=== PATIENT | male | born 1950 | race Caucasian/White ===

== ENCOUNTER 2018-07-09 14:08 | Outpatient (CLI) | payer MEDICARE, OTHER, SELFPAY ==
[2018-07-09 14:37] LABS: HCT 46.8 % (40.0-50.0); HGB 15.1 g/dL (13.5-17.5); Mean Corp. HGB Concentration 32.3 g/dL (32.0-36.0); Mean Corpuscular Hemoglobin 27.1 pg (27.0-33.0); Mean Corpuscular Volume 83.9 fL (80-95); Mean Platelet Volume 10.5 fL (8.0-11.0); Platelet Count 174 x1000/uL (130-400); RBC 5.58 m/cumm (4.50-6.00); RBC Distribution Width 14.6 % (11.8-14.1); White Blood Cell Count 7.38 k/cumm (4.4-10.8)
[2018-07-09 15:35] LABS: ALT 26 U/L (12-78); AST 15 U/L (15-37); Albumin 3.7 g/dL (3.4-5.0); Alkaline Phosphatase 57 U/L (46-116); Anion Gap 6.8 mmol/L (3-11); BUN 16 mg/dL (7-18); Bilirubin, Total 0.5 mg/dL (0.2-1.0); CO2 30.2 mmol/L (21.0-32.0); CREATININE 1.16 mg/dL (0.70-1.30); Calcium 9.1 mg/dL (8.5-10.1); Chloride 107 mmol/L (98-107); Glucose 109 mg/dL (70-100); Potassium 4.5 mmol/L (3.5-5.1); Sodium 144 mmol/L (136-145); Total Protein 6.7 g/dL (6.4-8.2)
== END 2018-07-09 14:28 ==
PROVIDERS: PCP Family Medicine; Visit Provider Family Medicine
DX: J44.1 Chronic obstructive pulmonary disease with (acute) exacerbation (principal)
CPT/HCPCS: 36415; 80053; 85027

== ENCOUNTER 2018-07-21 00:07 | Outpatient (CLI) | payer MEDICARE, OTHER, SELFPAY ==
--- NOTE | 2018-07-21 12:42 | DI.CT_ITS ---
SYMPTOMS/DIAGNOSIS: ABNL CHEST CT, R93.8, F/U MULTIPLE LUNG NODULES CT CHEST: Comparison is made with [id number]. A noncontrast exam was performed. The heart size is normal. The main pulmonary artery and left and right main pulmonary arteries are prominent which could indicate pulmonary hypertension. There is underlying central lobular emphysema. There is a linear area of scarring in the right upper lobe. There are dependent changes at the lung bases. There has been no change in the 5 mm nodule seen in the right upper and right lower lobes as well as the left lower lobe nodule. No new nodules are identified. There are no pleural or pericardial effusions or evidence of adenopathy. IMPRESSION: Stable small bilateral pulmonary nodules. No evidence of new nodules or other acute abnormality. If the patient is at high risk for lung cancer, a low dose screening CT is recommended in 12 months.
== END 2018-07-21 00:27 ==
PROVIDERS: PCP Family Medicine; Visit Provider Internal Medicine
DX: R93.89 Abnormal findings on diagnostic imaging of other specified body structures (principal); R91.8 Other nonspecific abnormal finding of lung field
CPT/HCPCS: 71250

== ENCOUNTER 2019-04-09 00:57 | Outpatient (CLI) | payer MEDICARE, OTHER, SELFPAY ==
--- NOTE | 2019-04-09 08:45 | DI.CT_ITS ---
SYMPTOM/DIAGNOSIS: COPD, J44.[address]: CT scan of the chest was performed without intravenous contrast material. Comparison is made with 07/21/18. There is mild atherosclerosis of the thoracic aorta but no aneurysmal dilatation is seen. Heart size is within normal limits. No significant pericardial effusion is present. Mild coronary artery calcifications are present. No significant thoracic adenopathy is identified. No pleural effusion or pneumothorax is present. Centrilobular emphysematous changes are present in the lungs. No focal consolidating infiltrates are present. Scarring is again seen in the right upper lobe. There is a stable 3 mm. noncalcified pulmonary nodule in the right upper lobe laterally (series 6, image 175). There is a stable 4 mm. non calcified pulmonary nodule in the right upper lobe (series 6, image 323). There is a stable 2 mm. non calcified pulmonary nodule in the right upper lobe (series 6, image 331). There is a 0.4 cm. pulmonary nodule in the right upper lobe anteriorly (series 6, image 359). This is stable. The 0.5 cm. pulmonary nodule in the right lower lobe appears stable (series 6, image 416). The lobulated nodule in the left lower lobe appears stable (series 6, image 510). No new pulmonary nodules are present. The tracheobronchial tree is unremarkable. No acute abnormality is seen in the upper abdomen. Degenerative changes are seen in the spine. IMPRESSION: Stable pulmonary nodules. Centrilobular emphysema. No acute abnormality.
== END 2019-04-09 01:17 ==
PROVIDERS: PCP Family Medicine; Visit Provider Internal Medicine
DX: J44.9 Chronic obstructive pulmonary disease, unspecified (principal); R91.8 Other nonspecific abnormal finding of lung field; J43.2 Centrilobular emphysema
CPT/HCPCS: 71250

== ENCOUNTER 2019-05-30 07:40 | Emergency (ER) | payer MEDICARE, OTHER, SELFPAY ==
[2019-05-30 07:47] VITALS: BP 117/64; PULSE 54; RESP 16; TEMP 36.3; O2SAT 97
--- NOTE | 2019-05-30 08:15 | ED.GENADUL_ITS ---
Discharge Plan Disposition Patient Disposition: HOME Discharge Details Chief Complaint: Vascular Clinical Impression: Left leg swelling Primary Care Provider: Dania Almaraz ED Provider: Danile Castellanos Home Meds and New Rx's Prescriptions: New Eliquis 5 mg tablet 10 mg PO BID Qty: 13 RF: 0 Continued albuterol sulfate [ProAir HFA] 90 mcg/actuation HFA aerosol inhaler 1 - 2 puff Inhalation Q4H PRN Qty: 3 RF: 12 Symbicort 160-4.5 mcg/actuation HFA aerosol inhaler 2 puff Inhalation BID Qty: 3 RF: 12 magnesium chloride [Mag 64] 64 mg tablet,delayed release (DR/EC) 64 mg PO BID Qty: 180 RF: 12 tamsulosin [Flomax] 0.4 mg capsule 0.4 mg PO HS Qty: 90 RF: 12 Spiriva with HandiHaler 18 mcg capsule, w/inhalation device 1 cap Inhalation DAILY Qty: 3 RF: 12 ascorbic acid (vitamin C) 500 mg capsule PO DAILY RF: 0 potassium chloride [Klor-Con M20] 20 mEq tablet,ER particles/crystals 20 meq PO BID Qty: 180 RF: 12 Discharge Instructions Additional Instructions: Please call and schedule an ultrasound of your right lower extremity to be performed on Saturday. Please contact your primary care physician to arrange follow-up. Return to the ER for any worsening or new concerning symptoms. Referrals: Dania Almaraz MD, [place] [Primary Care Provider] - Discharge Data Discharge Date/Time-TO BE ENTERED AT DEPARTURE: 05/30/19 09:25 Medical Decision Making 8:10 --68-year-old male presents with left lower extremity swelling, mild discomfort and itching over the past 5 days. No overlying warmth or erythema. Focal subcutaneous nodular swelling distal anterior lateral lower extremity - suspect superficial vein thrombus. Consider DVT. Plan to obtain ultrasound LLE. 9:09 --no radiation therapy technologist available to perform study today. Earliest potential scheduled appointment is on Saturday. I discussed with patient transfer vs treat empirically and await outpatient follow-up. Patient prefers to stay local and refuses transfer. I will order this outpatient study to expedite outpatient work-up. Plan to initiate treatment with Eliquis. I have encouraged the patient to follow-up with his primary care physician. Patient understands importance of timely follow-up. Usual customary discharge instructions were provided. HPI General Mode of arrival: ambulatory . Date/Time Provider Initiated Documentation: 05/30/19 07:51 . Limitations to Documentation: no limitations . Information obtained by: patient . HPI Narrative: 68-year-old male with prior history of DVT attributed to immobility and prolonged hospitalization years ago, no longer on anticoagulation, here with chief complaint of left lower leg swelling and associated discomfort. Patient notes swelling has been persistent for the past 5 days. Swelling is localized to distal left lower leg and seems worse anteriorly just proximal to his ankle. He has mild discomfort and itching in the area. Symptoms are moderate. No modifiers. No associated warmth or redness in the area. No known bug bites. No chest pain or shortness of breath, different than his chronic COPD, and no fevers. Related Data Home Medications Medication Instructions Recorded Confirmed potassium chloride 20 mEq 20 meq PO BID #180 tab 06/18/18 05/30/19 tablet,extended release(part/cryst) albuterol sulfate 90 mcg/actuation 1 - 2 puff INHALATION Q4H PRN #3 06/19/18 05/30/19 aerosol inhaler inhaler budesonide-formoterol HFA 160 2 puff INHALATION BID #3 canister 06/19/18 05/30/19 mcg-4.5 mcg/actuation aerosol inhaler magnesium chloride 64 mg 64 mg PO BID #180 tab-cap 06/19/18 05/30/19 (magnesium chloride) tablet,delayed release tamsulosin 0.4 mg capsule 0.4 mg PO HS #90 tab-cap 06/19/18 05/30/19 tiotropium bromide 18 mcg capsule 1 cap INHALATION DAILY #3 inh 06/19/18 05/30/19 with inhalation device ascorbic acid (vitamin C) 500 mg mg PO DAILY cap 03/23/19 03/23/19 capsule apixaban [Eliquis] 10 mg PO BID #13 tab 05/30/19 Previous Rx's Medication Instructions Recorded potassium chloride 20 mEq 20 meq PO BID #180 tab 06/18/18 tablet,extended release(part/cryst) albuterol sulfate 90 mcg/actuation 1 - 2 puff INHALATION Q4H PRN #3 06/19/18 aerosol inhaler inhaler budesonide-formoterol HFA 160 2 puff INHALATION BID #3 canister 06/19/18 mcg-4.5 mcg/actuation aerosol inhaler magnesium chloride 64 mg 64 mg PO BID #180 tab-cap 06/19/18 (magnesium chloride) tablet,delayed release tamsulosin 0.4 mg capsule 0.4 mg PO HS #90 tab-cap 06/19/18 tiotropium bromide 18 mcg capsule 1 cap INHALATION DAILY #3 inh 06/19/18 with inhalation device apixaban [Eliquis] 10 mg PO BID #13 tab 05/30/19 Allergies Allergy/AdvReac Type Severity Reaction Status Date / Time No Known Allergies Allergy Unverified 03/23/19 11:40 General Stated Complaint: Vascular JACE: 4 Review of Systems Review of Systems All systems reviewed & are unremarkable except as noted in HPI and below Cardiovascular Denies chest pain and Reports dyspnea (chronic unchanged) Respiratory Denies cough and Reports dyspnea (chronic unchanged) Integumentary/Breasts Denies rash [facility] Medical History AK (actinic keratosis) Anorectal fistula Chronic obstructive pulmonary disease with frequent exacerbations (Chronic) PFT-2003; Severe obs.disease; -A1,AD; FEV1=24% 09/05 neg. 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 TOLEDO-08/19/14; ear inflammation - could effect trachea in the future Seborrheic keratoses (Chronic 07/25/17) skin of submandibular region, right Smoker (Resolved) 12/26/12 60 pack yrs.; quit Surgical History Colonoscopy - MAC (~1998) Excision, Skin Mass (07/25/17) skin of submandibular region, right, seborrheic keratosis H/O knee surgery (Resolved) age 6 H/O surgical procedure (Resolved) fistula plug placed 05/2012 hernia repair knee repair age 6 PROCEDURES FISTULAS PLUG PLACED 06/23/12 (DR. RAMOS BAI) S/P hernia repair (Resolved) Family History Mother Ulcer Alzheimer disease Dementia OA (osteoarthritis) COPD (chronic obstructive pulmonary disease) Father COPD (chronic obstructive pulmonary disease) Pancreatic cancer Asthma Sister Essential hypertension Asthma Brother No problems noted. Paternal Grandfather Cancer Maternal Grandmother Cancer Paternal Grandmother Cancer Son Asthma Son Essential hypertension Son No problems noted. Social History Smoking/Tobacco Use Status: Former Tobacco Use Quit Date: 09/30/82 Alcohol Intake: current Alcohol Intake frequency: 0-2 drinks per day Alcohol type: beer and hard liquor Drug use: Never Substance use type: does not use Household members: spouse Pets and animals: No What type of physical activity do you participate in: walking Duration: 45-60 minutes/day Frequency: 3-4 times per week Little/Episcopalian: No preference Special little needs: No Do you feel safe in your relationship?: Yes Exam Const General: cooperative and no acute distress HENMT Mouth: moist mucous membranes Eyes Conjunctivae: normal conjunctivae Sclera: normal sclerae Resp Auscultation: clear to auscultation bilaterally, no rales, no rhonchi and no wheezes Cardio Rate: regular rate and not tachycardic Rhythm: regular rhythm Pulses: posterior tibial pulses present on the left 1+ Skin General skin exam: no rashes or lesions noted Neuro General: alert, awake and tone normal Extrem General: full ROM, no calf tenderness and edema Laterality: left (trace distal LE, anteriorly) Course Vital Signs Temperature 36.3 C L 05/30/19 07:47 Pulse 54 L 05/30/19 07:47 Respiratory Rate 16 05/30/19 07:47 Blood Pressure 117/64 05/30/19 07:47 Pulse Oximetry 97 05/30/19 07:47 Temperature 36.3 C L 05/30/19 07:47 Temperature Source Temporal Artery Scan 05/30/19 07:47 Pulse 54 L 05/30/19 07:47 Respiratory Rate 16 05/30/19 07:47 Blood Pressure 117/64 05/30/19 07:47 Blood Pressure Position Sitting 05/30/19 07:47 Pulse Oximetry 97 05/30/19 07:47 Oxygen Delivery Method Room Air 05/30/19 07:47 Oxygen Flow Rate 0 05/30/19 07:47
[2019-05-30] MEDS: Apixaban 5 MG TAB 10 MG PO (09:20)
== END 2019-05-30 09:25 | disposition home or self-care (01) ==
PROVIDERS: Emergency Provider Student in an Organized Health Care Education/Training Program; PCP Family Medicine
DX: R60.0 Localized edema (principal); L29.9 Pruritus, unspecified; Z86.718 Personal history of other venous thrombosis and embolism; J44.9 Chronic obstructive pulmonary disease, unspecified; Z87.891 Personal history of nicotine dependence
CPT/HCPCS: 99283; 99284

== ENCOUNTER 2019-06-02 00:31 | Outpatient (CLI) | payer MEDICARE, OTHER, SELFPAY ==
--- NOTE | 2019-06-02 09:27 | DI.US_ITS ---
SYMPTOM/DIAGNOSIS: LT LOWER EXTREMITY SWELLING. PAIN. H/O REMOTE DVT R22.42 LEFT LOWER EXTREMITY ULTRASOUND: The patient has a history of a previous DVT. There is thickening along the lin of the mid portion of the left femoral vein which could represent old nonocclusive thrombus. No acute thrombus is seen in the femoral or popliteal veins or visualized calf veins. No superficial thrombophlebitis or Valerio's cyst is seen. IMPRESSION: Wall thickening of the mid femoral vein likely representing old nonocclusive thrombus. No acute DVT is seen.
== END 2019-06-02 00:51 ==
PROVIDERS: PCP Family Medicine; Visit Provider Student in an Organized Health Care Education/Training Program
DX: M79.662 Pain in left lower leg (principal); R22.42 Localized swelling, mass and lump, left lower limb; Z86.718 Personal history of other venous thrombosis and embolism
CPT/HCPCS: 93971

== ENCOUNTER 2019-06-02 09:29 | Emergency (ER) | payer MEDICARE, OTHER, SELFPAY ==
--- NOTE | 2019-06-02 09:33 | NUR.NOTE ---
Nursing Note: pt was seen by yohannes on Saturday for probable blood clot lower left extremity. placed on eliquis and returned today fro ultrasound and followup ultrasound performed this morning
[2019-06-02 09:34] VITALS: BP 123/80; PULSE 56; RESP 16; TEMP 36.4; O2SAT 97
--- NOTE | 2019-06-02 09:44 | ED.GENADUL_ITS ---
Discharge Plan Disposition Patient Disposition: HOME Condition: Stable Discharge Details Chief Complaint: Recheck Clinical Impression: Deep vein thrombosis (DVT) of left lower extremity Primary Care Provider: Dania Almaraz ED Provider: Kevin Stern Home Meds and New Rx's Prescriptions: New Eliquis 5 mg tablet 5 mg PO BID Qty: 60 RF: 0 Continued albuterol sulfate [ProAir HFA] 90 mcg/actuation HFA aerosol inhaler 1 - 2 puff Inhalation Q4H PRN Qty: 3 RF: 12 Symbicort 160-4.5 mcg/actuation HFA aerosol inhaler 2 puff Inhalation BID Qty: 3 RF: 12 magnesium chloride [Mag 64] 64 mg tablet,delayed release (DR/EC) 64 mg PO BID Qty: 180 RF: 12 tamsulosin [Flomax] 0.4 mg capsule 0.4 mg PO HS Qty: 90 RF: 12 Spiriva with HandiHaler 18 mcg capsule, w/inhalation device 1 cap Inhalation DAILY Qty: 3 RF: 12 ascorbic acid (vitamin C) 500 mg capsule PO DAILY RF: 0 potassium chloride [Klor-Con M20] 20 mEq tablet,ER particles/crystals 20 meq PO BID Qty: 180 RF: 12 Eliquis 5 mg tablet 10 mg PO BID Qty: 13 RF: 0 Discharge Instructions Instructions: Deep Venous Thrombosis (ED) Additional Instructions: follow up with your primary care provider within a month so they can continue your blood thinner eliquis if you have high fevers, chest pain or difficulty breathing return to the emergency department Medical Decision Making 68 yo male with prior hx of lower extremity dvt 4 yeras ago per pt after hospitalization for pneumonia, who comes in after having an u/s of his left leg. He has had calf pain and seen on Saturday, no u/s tech was available so he came back today and was started on eliquis. He states he is feeling better, has no swelling on exam with intact sensation and pulses with mild left mid calf pain with palpation and no rashes or warmth. Given recurrent dvt will having him continue eliuis. He needs to have one week total of 10mg twice daily and then will change to 5mg twice daily, will have him f/u with pcp and return precautions given Differential Diagnosis dvt, cellulitis Imaging Data Radiologic Study: Attestation: I personally reviewed and interpreted this imaging study as follows: Imaging: Ultrasound Radiologist's impression: dvt HPI General Mode of arrival: ambulatory . Date/Time Provider Initiated Documentation: 06/02/19 09:29 . Information obtained by: patient . History of Present Illness 68 year old M presents to the emergency department with the chief complaint of left calf discomfort, described as mild, and is localized to the left and lower extremity. No relieving factors improve symptom(s), No exacerbating factors reported . Related Data Home Medications Medication Instructions Recorded Confirmed potassium chloride 20 mEq 20 meq PO BID #180 tab 06/18/18 06/02/19 tablet,extended release(part/cryst) albuterol sulfate 90 mcg/actuation 1 - 2 puff INHALATION Q4H PRN #3 06/19/18 06/02/19 aerosol inhaler inhaler budesonide-formoterol HFA 160 2 puff INHALATION BID #3 canister 06/19/18 06/02/19 mcg-4.5 mcg/actuation aerosol inhaler magnesium chloride 64 mg 64 mg PO BID #180 tab-cap 06/19/18 06/02/19 (magnesium chloride) tablet,delayed release tamsulosin 0.4 mg capsule 0.4 mg PO HS #90 tab-cap 06/19/18 06/02/19 tiotropium bromide 18 mcg capsule 1 cap INHALATION DAILY #3 inh 06/19/18 06/02/19 with inhalation device ascorbic acid (vitamin C) 500 mg mg PO DAILY cap 03/23/19 03/23/19 capsule Eliquis 10 mg PO BID #13 tab 05/30/19 06/02/19 apixaban [Eliquis] 5 mg PO BID #60 tab 06/02/19 Previous Rx's Medication Instructions Recorded potassium chloride 20 mEq 20 meq PO BID #180 tab 06/18/18 tablet,extended release(part/cryst) albuterol sulfate 90 mcg/actuation 1 - 2 puff INHALATION Q4H PRN #3 06/19/18 aerosol inhaler inhaler budesonide-formoterol HFA 160 2 puff INHALATION BID #3 canister 06/19/18 mcg-4.5 mcg/actuation aerosol inhaler magnesium chloride 64 mg 64 mg PO BID #180 tab-cap 06/19/18 (magnesium chloride) tablet,delayed release tamsulosin 0.4 mg capsule 0.4 mg PO HS #90 tab-cap 06/19/18 tiotropium bromide 18 mcg capsule 1 cap INHALATION DAILY #3 inh 06/19/18 with inhalation device Eliquis 10 mg PO BID #13 tab 05/30/19 apixaban [Eliquis] 5 mg PO BID #60 tab 06/02/19 Allergies Allergy/AdvReac Type Severity Reaction Status Date / Time No Known Allergies Allergy Unverified 06/02/19 09:37 General Stated Complaint: Recheck JACE: 4 Review of Systems Review of Systems All systems reviewed & are unremarkable except as noted in HPI and below Constitutional Denies chills, Denies fever(s) and Denies weakness Cardiovascular Denies chest pain and Denies dyspnea Respiratory Denies cough and Denies dyspnea Gastrointestinal Denies abdominal pain, Denies nausea and Denies vomiting Musculoskeletal Denies joint swelling Integumentary/Breasts Denies rash Neurologic Denies weakness PFS Social History Smoking/Tobacco Use Status: Former Tobacco Use Quit Date: 09/30/82 Alcohol Intake: current Alcohol Intake frequency: 0-2 drinks per day Alcohol type: beer and hard liquor Drug use: Never Substance use type: does not use Household members: spouse Pets and animals: No What type of physical activity do you participate in: walking Duration: 45-60 minutes/day Frequency: 3-4 times per week Little/Congregation: No preference Special little needs: No Do you feel safe at home: Yes Do you feel safe in your relationship?: Yes Exam Const General: no acute distress Orientation: alert HENMT Head: normal to inspection Ears: external ears normal General nose exam: external nose normal Mouth: moist mucous membranes Eyes General: appearance normal, both eyes and all related structures Neck Neck: normal visual inspection Resp Effort & Inspection: normal respiratory effort and able to speak in complete sentences Cardio Rate: regular rate Skin General skin exam: no rashes or lesions noted Neuro General: alert and oriented x3 Extrem General: full ROM and normal capillary refill Psych Mental Status: mental status grossly normal Course Vital Signs Temperature 36.4 C 06/02/19 09:34 Pulse 56 L 06/02/19 09:34 Respiratory Rate 16 06/02/19 09:34 Blood Pressure 123/80 06/02/19 09:34 Pulse Oximetry 97 06/02/19 09:34 Temperature 36.4 C 06/02/19 09:34 Temperature Source Skin 06/02/19 09:34 Pulse 56 L 06/02/19 09:34 Respiratory Rate 16 06/02/19 09:34 Respiratory Effort 06/02/19 09:38 Blood Pressure 123/80 06/02/19 09:34 Blood Pressure Position Sitting 06/02/19 09:34 Pulse Oximetry 97 06/02/19 09:34 Oxygen Delivery Method Room Air 06/02/19 09:34 Oxygen Flow Rate 0 06/02/19 09:34 Pain Level 0 06/02/19 09:34
--- NOTE | 2019-06-02 09:54 | NUR.NOTE ---
Nursing Note: Referral faxed to [facility] for follow up for the patient. Norma Conteh.
[2019-06-02 09:57] VITALS: BP 123/80; PULSE 56; RESP 16; TEMP 36.4; O2SAT 97
== END 2019-06-02 10:00 | disposition home or self-care (01) ==
PROVIDERS: Emergency Provider Emergency Medicine; PCP Family Medicine
DX: I82.402 Acute embolism and thrombosis of unspecified deep veins of left lower extremity (principal); Z79.01 Long term (current) use of anticoagulants; J44.9 Chronic obstructive pulmonary disease, unspecified; Z87.891 Personal history of nicotine dependence; Z86.718 Personal history of other venous thrombosis and embolism
CPT/HCPCS: 99283; 99281

== ENCOUNTER 2020-01-13 15:12 | Emergency (ER) | payer MEDICARE, OTHER, SELFPAY ==
[2020-01-13 15:17] VITALS: BP 156/94; PULSE 72; RESP 16; TEMP 36.7; O2SAT 91
--- NOTE | 2020-01-13 15:27 | ED.GENADUL_ITS ---
Discharge Plan Disposition Patient Disposition: HOME Condition: Good Discharge Details Chief Complaint: Laceration Clinical Impression: Amputation of finger Primary Care Provider: Dania Almaraz ED Provider: Zechariah Castro Home Meds and New Rx's Prescriptions: New cephalexin [Keflex] 500 mg capsule 500 mg PO QID 10 Days Qty: 40 RF: 0 No Action ascorbic acid (vitamin C) 500 mg capsule 500 mg PO DAILY RF: 0 albuterol sulfate [ProAir HFA] 90 mcg/actuation HFA aerosol inhaler 1 - 2 puff Inhalation Q4H PRN Qty: 3 RF: 12 budesonide-formoterol [Symbicort] 160-4.5 mcg/actuation HFA aerosol inhaler 2 puff Inhalation BID Qty: 3 RF: 12 magnesium chloride [Mag 64] 64 mg tablet,delayed release (DR/EC) 64 mg PO BID Qty: 180 RF: 12 potassium chloride [Klor-Con M20] 20 mEq tablet,ER particles/crystals 20 meq PO BID Qty: 180 RF: 12 tamsulosin [Flomax] 0.4 mg capsule 0.4 mg PO HS Qty: 90 RF: 12 Spiriva with HandiHaler 18 mcg capsule, w/inhalation device 1 cap Inhalation DAILY Qty: 3 RF: 12 doxycycline hyclate 100 mg capsule 100 mg PO BID Qty: 14 RF: 6 azithromycin 250 mg tablet See Rx Instructions PO .COMPLEX Qty: 6 RF: 3 Anoro Ellipta 62.5-25 mcg/actuation blister with device 1 ea Inhalation DAILY Qty: 3 RF: 11 amoxicillin-pot clavulanate [Augmentin] 875-125 mg tablet 1 tab PO BID PRNRF: 0 Discharge Instructions Instructions: Finger Amputation (ED) Additional Instructions: You have amputated the tip of your finger. It is extremely close to the bone, because of this we will be starting you on the antibiotic Keflex. For pain you can take 600 mg of ibuprofen every 6 hours or 1000 mg of Tylenol every 6 hours. Please keep the laceration covered and bandaged until you are seen by your PCP on reassessment. Please follow-up in 7 days for this. You can certainly return here for reassessment, but because of the current pandemic we would recommend close management with your primary care provider Dr. Almaraz. Do not directly soak the area. Keep it dry. Watch for any signs of infection and return if any increasing redness, swelling, pain, drainage. If you notice any worsening of your symptoms, or any new symptoms such as vomiting, diarrhea, fever, chills, shortness of breath, chest pain, numbness, weakness, or fainting , please return immediately to the emergency department for reevaluation. Please follow up with your primary care provider as soon as possible for reassessment and reevaluation. As always, it was a pleasure participating in your medical care today. Referrals: Dania Almaraz MD, [place] [Primary Care Provider] - Medical Decision Making 69-year-old male who is right-hand dominant who presents today after removing the tip of his index finger on a planer. Patient states that he slipped, his finger slipped, and unfortunately lost against the planer. This occurred roughly 30 minutes prior to arrival. He was bandaged by medical staff on scene. Tetanus was updated in 2011. Patient denies any numbness or tingling or pain aside for the location for where the finger was removed. No other complaints at this time. No other modifying factors. Physical exam demonstrates slight amputation of the distal tip of the finger. No active bleeding, minimal oozing, he still demonstrates good flexion and extension. Will get x-ray to evaluate for any foreign bodies, or significant bony disruption. 4 PM X-ray results show questionable terminal tuft of the distal phalanx involvement, clinically does appear that there is a edge of bone that is auditorily palpable on exam with hemostats. No other foreign bodies or other abnormalities. The patient does still demonstrate intact flexion of the distal tip. This correlates well with exam. The area was cleaned and irrigated with copious amounts of normal saline and chlorhexidine. Finger was anesthetized with 1% lidocaine 3 cc at the base of the second digit. The wound margin edges were revised, extraneous tissue was removed. Moderate flap was achieved with remaining skin anchoring it to the distal tip of the nail and remaining medial and lateral skin. 4 simple interrupted sutures with chromic gut were used for this reattachment of the skin. Patient tolerated procedure well. Following this a small slit Xeroform gauze was placed followed by Gelfoam, this was then bandaged. Repeat assessment after tourniquet was removed demonstrated good blood flow, no other abnormalities. Patient tolerated procedure well. He was placed in a splint of the finger for protection of the finger. Recommend close follow-up with his PCP in 7 to 10 days for reassessment, as well as having had a long discussion of red flags which to return. Because of the potential minimal exposure bone, we will place the patient on Keflex for bacterial prophylaxis. We discussed red flags which to return. I have extensively reviewed the treatment plan and discharge instructions with the patient. I have addressed all patient concerns at this time. The patient was made aware of what symptoms to monitor for that would warrant a return to the emergency department. Discussed the plan with the patient, they demonstrate verbal understanding and agreement with our assessment and plan at this time. IMPRESSION: No evidence of acute fracture, dislocation, or subluxation. Soft tissue amputation at the tip of the right index finger. The terminal tuft of the distal phalanx may be exposed. Please correlate with physical exam. HPI General Date/Time Provider Initiated Documentation: 01/13/20 15:23 . HPI Narrative: 69-year-old male who is right-hand dominant who presents today after removing the tip of his index finger on a planer. Patient states that he slipped, his finger slipped, and unfortunately lost against the planer. This occurred roughly 30 minutes prior to arrival. He was bandaged by medical staff on scene. Tetanus was updated in 2011. Patient denies any numbness or tingling or pain aside for the location for where the finger was removed. No other complaints at this time. No other modifying factors. Related Data Home Medications Medication Instructions Recorded Confirmed ascorbic acid (vitamin C) 500 mg 500 mg PO DAILY cap 03/23/19 06/08/19 capsule albuterol sulfate 90 mcg/actuation 1 - 2 puff INHALATION Q4H PRN #3 06/08/19 06/08/19 aerosol inhaler inhaler azithromycin 250 mg tablet See Rx Instructions PO .COMPLEX #6 06/08/19 01/13/20 tab budesonide-formoterol HFA 160 2 puff INHALATION BID #3 canister 06/08/19 01/13/20 mcg-4.5 mcg/actuation aerosol inhaler doxycycline hyclate 100 mg capsule 100 mg PO BID #14 tab-cap 06/08/19 01/13/20 magnesium chloride 64 mg 64 mg PO BID #180 tab-cap 06/08/19 01/13/20 (magnesium chloride) tablet,delayed release potassium chloride 20 mEq 20 meq PO BID #180 tab 06/08/19 01/13/20 tablet,extended release(part/cryst) tamsulosin 0.4 mg capsule 0.4 mg PO HS #90 tab-cap 06/08/19 01/13/20 tiotropium bromide 18 mcg capsule 1 cap INHALATION DAILY #3 inh 06/08/19 01/13/20 with inhalation device umeclidinium 62.5 mcg-vilanterol 1 ea INHALATION DAILY #3 disk 11/07/19 01/13/20 25 mcg/actuation powdr for inhalation amoxicillin-pot clavulanate 1 tab PO BID PRN 01/13/20 [Augmentin] cephalexin [Keflex] 500 mg PO QID 10 Days #40 cap 01/13/20 Previous Rx's Medication Instructions Recorded albuterol sulfate 90 mcg/actuation 1 - 2 puff INHALATION Q4H PRN #3 06/08/19 aerosol inhaler inhaler azithromycin 250 mg tablet See Rx Instructions PO .COMPLEX #6 06/08/19 tab budesonide-formoterol HFA 160 2 puff INHALATION BID #3 canister 06/08/19 mcg-4.5 mcg/actuation aerosol inhaler doxycycline hyclate 100 mg capsule 100 mg PO BID #14 tab-cap 06/08/19 magnesium chloride 64 mg 64 mg PO BID #180 tab-cap 06/08/19 (magnesium chloride) tablet,delayed release potassium chloride 20 mEq 20 meq PO BID #180 tab 06/08/19 tablet,extended release(part/cryst) tamsulosin 0.4 mg capsule 0.4 mg PO HS #90 tab-cap 06/08/19 tiotropium bromide 18 mcg capsule 1 cap INHALATION DAILY #3 inh 06/08/19 with inhalation device umeclidinium 62.5 mcg-vilanterol 1 ea INHALATION DAILY #3 disk 11/07/19 25 mcg/actuation powdr for inhalation cephalexin [Keflex] 500 mg PO QID 10 Days #40 cap 01/13/20 Allergies Allergy/AdvReac Type Severity Reaction Status Date / Time No Known Allergies Allergy Unverified 06/08/19 11:35 General Stated Complaint: Laceration JACE: 4 Review of Systems All systems reviewed & are unremarkable except as noted in HPI and below PFSH Social History Smoking/Tobacco Use Status: Former Tobacco Use Quit Date: 09/30/82 Alcohol Intake: current Alcohol Intake frequency: 0-2 drinks per day Alcohol type: beer and hard liquor Drug use: Never Substance use type: does not use Household members: spouse Pets and animals: No What type of physical activity do you participate in: walking Duration: 45-60 minutes/day Frequency: 3-4 times per week Little/Mormonism: No preference Special little needs: No Do you feel safe at home: Yes Do you feel safe in your relationship?: Yes Exam Narrative Exam Narrative: 1.Const: Well-nourished, Well-developed, appearing stated age 2.Eyes: PERRL, no conjunctival injection, and symmetrical lids. 3.ENT: Atraumatic external nose and ears. Moist MM. Neck: Symmetric, trachea midline, No thyromegaly. 4.CVS: +S1/S2, No murmurs or gallops. Peripheral pulses 2+ and equal in all extremities. Brisk capillary refill in all extremities. 5.RESP: Unlabored respiratory effort. Clear to auscultation bilaterally. No wheezes rales or rhonchi 6.GI: Soft, Nontender/Nondistended, No hepatosplenomegaly. No guarding or rebound. 7.MSK: Normocephalic. Patient's right hand demonstrates partial amputation of the distal tissue tip of the index finger, slight laceration to the distal tip of the nail as well. Mild active oozing, no angelo hemorrhage. Patient demonstrates good flexion extension at the distal tip of the remainder of the finger. Sensation intact throughout otherwise. No other abnormalities. 8.Skin: Warm, Dry. No rashes or lesions. 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 Sensation grossly intact, no focal neurologic deficits. 10.Psych: (AAO) x3. Appropriate mood and affect Course Vital Signs Vital signs: Vital Signs Temperature 36.7 C 01/13/20 15:17 Pulse 72 01/13/20 15:17 Respiratory Rate 16 01/13/20 15:17 Blood Pressure 156/94 H 01/13/20 15:17 Pulse Oximetry 91 L 01/13/20 15:17 Temperature 36.7 C 01/13/20 15:17 Temperature Source Temporal Artery Scan 01/13/20 15:17 Pulse 72 01/13/20 15:17 Respiratory Rate 16 01/13/20 15:17 Blood Pressure 156/94 H 01/13/20 15:17 Pulse Oximetry 91 L 01/13/20 15:17 Oxygen Delivery Method Room Air 01/13/20 15:17 Oxygen Flow Rate 0 01/13/20 15:17 Pain Level 3 01/13/20 15:17 Procedures Laceration Laceration 1: Site: hand Side (If applicable): right Size (cm): 2 Description: flap and irregular Depth: involves muscle layer Local Anesthetic: Lidocaine 1% Amount of anesthesia used (mL): 3 Pre-repair: wound explored, irrigated extensively, deep structures intact and wound margins revised Skin layer closed with: other (chromic gut) Size (cm): 5-0 Number of sutures: 3 Technique: simple, interrupted
--- NOTE | 2020-01-13 15:33 | DI.RAD_ITS ---
EXAM: XR FINGER RT INDEX CLINICAL HISTORY: chopped off distal tip of finger. TECHNIQUE: 2D digital imaging was performed. COMPARISON: No exams were available for comparison FINDINGS: BONES: No acute fracture is present. No bony destructive lesion is seen. JOINTS: No dislocation present. SOFT TISSUE: There is amputation of the soft tissues at the tip of the right index finger. The termi nal tuft the distal phalanx of the index finger may be exposed. IMPRESSION: No evidence of acute fracture, dislocation, or subluxation. Soft tissue amputation at the tip of the right index finger. The terminal tuft of the distal phalanx may be exposed. Please correlate with physical exam. DATA REPOSITORY: RADIATION DOSE DELIVERED:
[2020-01-13] MEDS: Silver Nitrate Stick 1 EACH (15:42)
== END 2020-01-13 16:20 | disposition home or self-care (01) ==
PROVIDERS: Emergency Provider Student in an Organized Health Care Education/Training Program; PCP Family Medicine
DX: S68.620A Partial traumatic transphalangeal amputation of right index finger, initial encounter (principal); W31.2XXA Contact with powered woodworking and forming machines, initial encounter
CPT/HCPCS: 12041; 99283; 73140

== ENCOUNTER 2020-03-07 14:40 | Outpatient (CLI) | payer MEDICARE, OTHER, SELFPAY ==
--- NOTE | 2020-03-07 15:30 | DI.RAD_ITS ---
EXAM: XR LUMBAR SPINE COMPLETE CLINICAL HISTORY: LBP and hip pain,m54.5. TECHNIQUE: 2D digital imaging was performed. COMPARISON: No exams were available for comparison FINDINGS: There are 5 lumbar type vertebral bodies. There is normal alignment. No spondylolysis or spondyloli sthesis is seen. At L4-L5, there is mild disc space narrowing with endplate osteophytes present. Th ere are degenerative changes of the facets seen throughout the lumbar spine but are most marked at L4 -5 and L5-S1. No acute fracture or subluxations are seen. The bones appear normally mineralized. T here is a rounded density projected in the right upper quadrant on the oblique image of the lumbar sp ine. This may represent a renal or gallbladder stone. Follow-up as clinically appropriate.. IMPRESSION: [id number] degenerative changes in the lumbar spine. DATA REPOSITORY: RADIATION DOSE DELIVERED:
--- NOTE | 2020-03-07 15:30 | DI.RAD_ITS ---
EXAM: XR HIP PELVIS ADULT BL CLINICAL HISTORY: hip pain,m25.559. TECHNIQUE: 2D digital imaging was performed. COMPARISON: No exams were available for comparison FINDINGS: BONES: No acute fracture is present. No bony destructive lesion is seen. The sacroiliac joints and sy mphysis pubis appear unremarkable. JOINTS: No dislocation present. The hip joints are well maintained. No joint space narrowing is pres ent. SOFT TISSUE: Normal. IMPRESSION: Unrmarkable radiographs of bilat hips. Unremarkable radiographs of the pelvis DATA REPOSITORY: RADIATION DOSE DELIVERED:
== END 2020-03-07 15:00 ==
PROVIDERS: PCP Family Medicine; Visit Provider Family Medicine
DX: M54.5 Low back pain (principal); M47.816 Spondylosis without myelopathy or radiculopathy, lumbar region; M25.551 Pain in right hip; M25.552 Pain in left hip
CPT/HCPCS: 73521; 72110

== ENCOUNTER 2020-08-02 11:23 | Inpatient (IN) | payer MEDICARE, OTHER, SELFPAY ==
[2020-08-02] VITALS (70 sets, daily range): BP systolic 92–118; BP diastolic 58–74; PULSE 61–96; RESP 8–33; TEMP 36.4–37.7; O2SAT 88–99
--- NOTE | 2020-08-02 11:15 | RT.EKG_ITS ---
APPROVED REPORT Exam: Resting ECG Patient Location: E HR:77 bpm ECG Measurements Heart Rate 77 AXIS AR 161 P 60 QRSd 94 QRS 59 QT 365 T 53 QTc 413 Conclusion Sinus rhythm...normal P axis, V-rate 60- 99 Low voltage, extremity leads...all extremity leads <0.5mV
--- NOTE | 2020-08-02 11:45 | DI.RAD_ITS ---
EXAM: XR PORTABLE CHEST AP CLINICAL HISTORY: Fever, SOB TECHNIQUE: 2D digital imaging was performed. COMPARISON: CT CT CHEST WO from 04/09/[address] CHEST WO from 04/09/2019 FINDINGS: MEDIASTINUM: Normal. HEART: Normal. PULMONARY VASCULATURE: Normal. LUNGS: There is an infiltrate in the right lung base. The lungs appear hyperinflated suggesting unde rlying COPD. Scarring is seen in the lung bases bilaterally. PLEURAL SPACE: No pleural effusion or pneumothorax. BONE:Within normal limits for the patient's age. OTHER FINDINGS:Normal. IMPRESSION: Right basilar infiltrate which may represent atelectasis or pneumonia. DATA REPOSITORY: RADIATION DOSE DELIVERED:
--- NOTE | 2020-08-02 11:47 | W.ED.GENAD ---
Discharge Plan Disposition Patient Disposition: [facility] INPATIENT Condition: Serious Discharge Details Clinical Impression: Pneumonia Admit Date/Time: 08/02/20 13:16 Admit Provider: Komal Armstrong Attending Provider: Komal Armstrong Primary Care Provider: Dania Almaraz ED Provider: Chery Gastelum Discharge Data Discharge Date/Time-TO BE ENTERED AT DEPARTURE: 08/02/20 14:12 Medical Decision Making 69-year-old male with a history of COPD presents to the ED chief complaint fever T-max 101.4, headache, chills, fatigue, and myalgias with increased shortness of breath for the last 2 days. Patient took some ibuprofen prior to arrival for fever. Upon initial exam he is alert and oriented, O2 sat is 90 to 92% on room air. He denies any pain no chest pain, abdominal pain, nausea, vomiting, or diarrhea. Patient has a history of COPD. CBC shows a white count of 15.79, absolute neutrophils 13.2, lactate 0.8, sodium 136, potassium 4.4, urinalysis is pending at this time. Covid test is pending at this time. Blood cultures are also pending at this time. Ceftriaxone 1 gm and Azithromycin 500 mg IVPB ordered for presumed RLL Pneumonia. EXAM: XR PORTABLE CHEST AP CLINICAL HISTORY: Fever, SOB TECHNIQUE: 2D digital imaging was performed. COMPARISON: CT CT CHEST WO from 04/09/[address] CHEST WO from 04/09/2019 FINDINGS: MEDIASTINUM: Normal. HEART: Normal. PULMONARY VASCULATURE: Normal. LUNGS: There is an infiltrate in the right lung base. The lungs appear hyperinflated suggesting underlying COPD. Scarring is seen in the lung bases bilaterally. PLEURAL SPACE: No pleural effusion or pneumothorax. BONE:Within normal limits for the patient's age. OTHER FINDINGS:Normal. IMPRESSION: Right basilar infiltrate which may represent atelectasis or pneumonia. 1312: Spoke with Dr. Armstrong who is on for hospitalist regarding patient case and details she agrees to accept patient for admission at this time. HPI General Mode of arrival: wheelchair. Date/Time Provider Initiated Documentation: 08/02/20 11:29. Limitations to Documentation: no limitations. Information obtained by: patient. HPI Narrative: 69-year-old male with a history of COPD presents to the ED chief complaint fever T-max 101.4, headache, chills, fatigue, and myalgias with increased shortness of breath for the last 2 days. Patient took some ibuprofen prior to arrival for fever. Upon initial exam he is alert and oriented, O2 sat is 90 to 92% on room air. He denies any pain no chest pain, abdominal pain, nausea, vomiting, or diarrhea. Patient has a history of COPD. Related Data Home Medications Medication Instructions Recorded Confirmed ascorbic acid (vitamin C) 500 mg 500 mg PO DAILY cap 03/23/19 08/02/20 capsule albuterol sulfate 90 mcg/actuation 1 - 2 puff INHALATION Q4H PRN #3 06/08/19 08/02/20 aerosol inhaler inhaler azithromycin 250 mg tablet See Rx Instructions PO .COMPLEX #6 06/08/19 08/02/20 tab budesonide-formoterol HFA 160 2 puff INHALATION BID #3 canister 06/08/19 08/02/20 mcg-4.5 mcg/actuation aerosol inhaler doxycycline hyclate 100 mg capsule 100 mg PO BID #14 tab-cap 06/08/19 08/02/20 magnesium chloride 64 mg 64 mg PO BID #180 tab-cap 06/08/19 08/02/20 (magnesium chloride) tablet,delayed release potassium chloride 20 mEq 20 meq PO BID #180 tab 06/08/19 08/02/20 tablet,extended release(part/cryst) tamsulosin 0.4 mg capsule 0.4 mg PO HS #90 tab-cap 06/08/19 08/02/20 tiotropium bromide 18 mcg capsule 1 cap INHALATION DAILY #3 inh 06/08/19 08/02/20 with inhalation device umeclidinium 62.5 mcg-vilanterol 1 ea INHALATION DAILY #3 disk 11/07/19 08/02/20 25 mcg/actuation powdr for inhalation amoxicillin-pot clavulanate 1 tab PO BID PRN 01/13/20 08/02/20 [Augmentin] Previous Rx's Medication Instructions Recorded albuterol sulfate 90 mcg/actuation 1 - 2 puff INHALATION Q4H PRN #3 06/08/19 aerosol inhaler inhaler azithromycin 250 mg tablet See Rx Instructions PO .COMPLEX #6 06/08/19 tab budesonide-formoterol HFA 160 2 puff INHALATION BID #3 canister 06/08/19 mcg-4.5 mcg/actuation aerosol inhaler doxycycline hyclate 100 mg capsule 100 mg PO BID #14 tab-cap 06/08/19 magnesium chloride 64 mg 64 mg PO BID #180 tab-cap 06/08/19 (magnesium chloride) tablet,delayed release potassium chloride 20 mEq 20 meq PO BID #180 tab 06/08/19 tablet,extended release(part/cryst) tamsulosin 0.4 mg capsule 0.4 mg PO HS #90 tab-cap 06/08/19 tiotropium bromide 18 mcg capsule 1 cap INHALATION DAILY #3 inh 06/08/19 with inhalation device umeclidinium 62.5 mcg-vilanterol 1 ea INHALATION DAILY #3 disk 11/07/19 25 mcg/actuation powdr for inhalation Allergies Allergy/AdvReac Type Severity Reaction Status Date / Time No Known Allergies Allergy Unverified 08/02/20 11:52 General JACE: 4 Review of Systems Narrative: Constitutional: Negative for weight loss, alert and oriented, well groomed, normal body habitus, appears comfortable. Positive fever positive generalized fatigue. HEENT: Denies trauma, blurry vision, nasal discharge, sore throat, trouble swallowing. Positive headache Chest: Denies chest pain, palpitations, irregular rhythm, hypertension. Respiratory: Denies cough, hemoptysis. Positive shortness of breath, history of COPD. GI: Denies abdominal pain, nausea, vomiting, diarrhea, constipation. : Denies dysuria, hematuria, flank pain, rectal bleeding. Neuro: Denies dizziness, blurry vision, , syncope, headache or facial numbness. Hematologic: Denies easy bruising, intolerance to heat or cold, hair loss. [facility] Medical History AK (actinic keratosis) Anorectal fistula Chronic obstructive pulmonary disease with frequent exacerbations [id number]; Severe obs.disease; -A1,AD; FEV1=24% 09/05 neg. 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 TOLEDO-08/19/14; ear inflammation - could effect trachea in the future Seborrheic keratoses (07/25/17) skin of submandibular region, right Smoker 12/26/12 60 pack yrs.; quit 90's Smoker (12/26/12) Tubular adenoma of colon (~05/25/20) Surgical History Colonoscopy - MAC (~1998) Excision, Skin Mass (07/25/17) skin of submandibular region, right, seborrheic keratosis H/O knee surgery age 6 H/O surgical procedure fistula plug placed 05/2012 hernia repair knee repair age 6 PROCEDURES FISTULAS PLUG PLACED 06/23/12 (DR. RAMOS BAI) S/P hernia repair Family History Mother Ulcer Alzheimer disease Dementia OA (osteoarthritis) COPD (chronic obstructive pulmonary disease) Father COPD (chronic obstructive pulmonary disease) Pancreatic cancer Asthma Sister Essential hypertension Asthma Brother No problems noted. Paternal Grandfather Cancer Maternal Grandmother Cancer Paternal Grandmother Cancer Son Asthma Son Essential hypertension Son No problems noted. Social History Smoking/Tobacco Use Status: Former Tobacco Use Quit Date: 09/30/82 Tobacco: How many years used: 35 Smoking risk assessment performed?: Yes Alcohol Intake: current Alcohol Intake frequency: 0-2 drinks per day Alcohol type: beer and hard liquor Drug use: Never Substance use type: does not use Household members: spouse Pets and animals: No What type of physical activity do you participate in: walking Duration: 45-60 minutes/day Frequency: 3-4 times per week Little/Gnosticist: No preference Special little needs: No Do you feel safe at home: Yes Do you feel safe in your relationship?: Yes Exam Narrative Exam Narrative: Constitutional: Alert and oriented x3. Appears stated age. Normal body habitus. Head: Normocephalic, no trauma. Eyes: Pupils PERRLA, Red reflex noted, EOM's intact. Eyelids symmetrical without lesions, discharge, or swelling. ENT: Bilateral TM's WNL, External ear normal to inspection, no mastoid TTP, swelling, or erythema, Nasal turbinates WNL, no nasal discharge. Normal dentition, Posterior pharynx WNL, no exudate. Chest: RRR, Normal S1, S2, distal pulses intact. Resp: Lungs clear to auscultation bilaterally, no wheezes, rales, or rhonchi. Musculoskeletal: Normal gait, 5/5 strength to all four extremities. Skin: No suspicious rashes or lesions. Capillary refill less than 2 sec. Neurologic: Cranial nerves II-XII intact. Alert and oriented x 3. DTR's intact. Hematologic/Lymphatic: No ecchymosis, no lymphadenopathy. Course Lab/Test Results Lab/Test Results: 08/02/20 11:35 Blood Blood Culture - Pending 08/02/20 11:35 Blood Blood Culture - Pending
[2020-08-02 11:48] LABS: Lactate 0.8 mmol/L (0.6-1.4)
[2020-08-02 11:50] LABS: Abs Immature Grans 0.07 10^3/uL (0.0-0.06); Absolute Basophil Count 0.03 10^3/uL (0.0-0.2); Absolute Lymphocyte Count 1.23 10^3/uL (1.2-3.4); Absolute Monocyte Count 1.22 10^3/uL (0.1-0.8); Basophils % 0.2; Eosinophils % 0.3; HCT 45.6 % (40.0-50.0); HGB 14.8 g/dL (13.5-17.5); Immature Grans % 0.4; Lymphocytes % 7.8; MCH 27.2 pg (27.0-33.0); MCHC 32.5 % (32.0-36.0); MCV 83.7 fL (80-95); MPV 10.3 fL (8.0-11.0); Monocytes % 7.7; Neutrophils % 83.6; Nucleated RBC 0 %; Platelet Count 194 10^3/uL (130-400); RBC 5.45 10^6/uL (4.36-5.78); RDW-SD 42.5 fL; WBC 15.79 10^3/uL (4.4-10.8)
[2020-08-02 11:51] LABS: Absolute Eosinophil Count 0.05 10^3/uL (0.0-0.7)
[2020-08-02 12:07] LABS: ALT 21 U/L (16-63); AST 12 U/L (15-37); Albumin 3.6 g/dL (3.4-5.0); Alkaline Phosphatase 59 U/L (46-116); Anion Gap 5.8 mmol/L (3-11); BUN 14 mg/dL (7-18); Bilirubin, Total 0.9 mg/dL (0.2-1.0); CO2 27.2 mmol/L (21.0-32.0); CREATININE 1.13 mg/dL (0.70-1.30); Calcium 8.8 mg/dL (8.5-10.1); Chloride 103 mmol/L (98-107); Glucose 108 mg/dL (74-106); Potassium 4.4 mmol/L (3.5-5.1); Sodium 136 mmol/L (136-145); Total Protein 7.2 g/dL (6.4-8.2)
[2020-08-02 12:14] LABS: Troponin I < 0.05 ng/mL (<0.06)
[2020-08-02] MEDS: Normal Saline 1,000 ML 1000 ML IV (13:34)
[2020-08-02] MEDS: cefTRIAXone 1 GM/50 ML BAG IVPB (13:34)
[2020-08-02] MEDS: AZITHROMYCIN 500 MG in Normal Saline 250 ML 250 MG IVPB (13:45)
[2020-08-02 14:11] LABS: Bilirubin Negative (Negative); Blood Negative (Negative); Clarity Clear (Clear); Glucose Negative (Negative); Ketones Negative (Negative); Leukocyte Esterase Negative (Negative); Nitrite Negative (Negative); Urobilinogen 0.2 EU/dL (Up TO 0.2); pH 6.5 (5-8)
[2020-08-02] MEDS: Normal Saline 1,000 ML 150 ML IV ×2 (14:30→20:20)
[2020-08-02] MEDS: Enoxaparin 40 MG/0.4 ML SYR SC (15:03)
--- NOTE | 2020-08-02 15:24 | HPE_ITS ---
Date of service: 08/02/20 Time of Service: 15:10 Assessment and Plan Assessment and plan (1) Pneumonia: Status: Acute Assessment and plan: CAP, present on admission. Continue azithromycin/ceftriaxone started in the ED. Continue IVF. Obtain sputum culture. Encourage IS. Await blood culture results. Patient is a PUI as his dry cough has been ongoing for 2 weeks and other symptoms are suggestive of possible COVID-19 infection. (2) Acute exacerbation of chronic obstructive pulmonary disease (COPD): Status: Acute Assessment and plan: As above. Additionally, will treat with scheduled and prn nebs as well as prednisone 40 mg PO daily. Conitnue home symbicort. We are verifying home medications. (3) Hypoxia: Status: Acute Assessment and plan: Due to above. As above (4) Dehydration: Status: Acute Assessment and plan: Causing hypotension, which has now resolved. Continue IVF. MOnitor I/O, daily weight. The patient is not in septic shock - ok to transfer out of ICU. (5) Discharge planning issues: Status: Acute Assessment and plan: Full code Patient initially admitted to the ICU, but being quickly downgraded as his BP stabilized. (6) DVT prophylaxis: Status: Acute Assessment and plan: lovenox History of Present Illness History of Present Illness Chief Complaint: Fevers/chills, shortness of breath Narrative: Mr Goncalves is a 69 year old male with PMHx of non-oxygen dependent COPD with frequent exacerbations, several pneumonias in the past, relapsing polychondritis, and past history of tobacco abuse, who presented to [facility] ED today after 2 weeks of non-productive cough, 2 days of fevers/chills (Temp of 101.4 at home), shortness of rbeath, hypoxia to 88% on room air by home pulse oxymeter. He also endorses headaches and myalgias. The patient states that he has not been around anyone with URI symptoms or confirmed COVID-19 and has been wearing a mask. In the ED, he was afebrile, found to have a white count of 15.79, O2 sats of 89% on RA. His CXR was read as Right basilar infiltrate: atelectasis vs pneumonia. He was intiated on ceftriaxone, azithromycin, IVF as his blood pressure was reported to be 94/63 - 92/73, and hospitalists were asked to take over care. Review of Systems All systems reviewed & are unremarkable except as noted in HPI and below PFSH Medical History AK (actinic keratosis) Anorectal fistula Chronic obstructive pulmonary disease with frequent exacerbations PFT-2003; Severe obs.disease; -A1,AD; FEV1=24% 09/05 neg. 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 TOLEDO-08/19/14; ear inflammation - could effect trachea in the future Seborrheic keratoses (07/25/17) skin of submandibular region, right Smoker 12/26/12 60 pack yrs.; quit 's Smoker (12/26/12) Tubular adenoma of colon (~05/25/20) Surgical History Colonoscopy - MAC (~1998) Excision, Skin Mass (07/25/17) skin of submandibular region, right, seborrheic keratosis H/O knee surgery age 6 H/O surgical procedure fistula plug placed 05/2012 hernia repair knee repair age 6 PROCEDURES FISTULAS PLUG PLACED 06/23/12 (DR. RAMOS BAI) S/P hernia repair Family History Mother Ulcer Alzheimer disease Dementia OA (osteoarthritis) COPD (chronic obstructive pulmonary disease) Father COPD (chronic obstructive pulmonary disease) Pancreatic cancer Asthma Sister Essential hypertension Asthma Brother No problems noted. Paternal Grandfather Cancer Maternal Grandmother Cancer Paternal Grandmother Cancer Son Asthma Son Essential hypertension Son No problems noted. Social History Smoking/Tobacco Use Status: Former Tobacco Use Quit Date: 09/30/82 Tobacco: How many years used: 35 Smoking risk assessment performed?: Yes Alcohol Intake: current Alcohol Intake frequency: 0-2 drinks per day Alcohol type: beer and hard liquor Drug use: Never Substance use type: does not use Household members: spouse Pets and animals: No What type of physical activity do you participate in: walking Duration: 45-60 minutes/day Frequency: 3-4 times per week Little/Adventism: No preference Special little needs: No Do you feel safe at home: Yes Do you feel safe in your relationship?: Yes Meds Home Medications and Allergies Home Medications Medication Instructions Recorded Confirmed Type ascorbic acid (vitamin C) 500 mg 500 mg PO DAILY cap 03/23/19 08/02/20 History capsule albuterol sulfate 90 mcg/actuation 1 - 2 puff INHALATION Q4H PRN #3 06/08/19 08/02/20 Rx aerosol inhaler inhaler azithromycin 250 mg tablet See Rx Instructions PO .COMPLEX #6 06/08/19 08/02/20 Rx tab budesonide-formoterol HFA 160 2 puff INHALATION BID #3 canister 06/08/19 1 10/02/19 Rx mcg-4.5 mcg/actuation aerosol inhaler doxycycline hyclate 100 mg capsule 100 mg PO BID #14 tab-cap 06/08/19 08/02/20 Rx magnesium chloride 64 mg 64 mg PO BID #180 tab-cap 06/08/19 08/02/20 Rx (magnesium chloride) tablet,delayed release potassium chloride 20 mEq 20 meq PO BID #180 tab 06/08/19 08/02/20 Rx tablet,extended release(part/cryst) tamsulosin 0.4 mg capsule 0.4 mg PO HS #90 tab-cap 06/08/19 08/02/20 Rx tiotropium bromide 18 mcg capsule 1 cap INHALATION DAILY #3 inh 06/08/19 08/02/20 Rx with inhalation device umeclidinium 62.5 mcg-vilanterol 1 ea INHALATION DAILY #3 disk 11/07/19 08/02/20 Rx 25 mcg/actuation powdr for inhalation amoxicillin-pot clavulanate 1 tab PO BID PRN 01/13/20 08/02/20 History [Augmentin] Allergies Allergy/AdvReac Type Severity Reaction Status Date / Time No Known Allergies Allergy Unverified 08/02/20 11:52 Exam Narrative Exam Narrative: General: Very pleasant middle-aged male who is not dyspneic/tachypenic/cyanotic, 94% on room air, able to complete full sentences, non-toxic appearing Neurological: A&Ox3, no focal deficits Psychiatric: Appropriate speech pattern/content Skin: Visible skin intact HEENT: Atraumatic, normocephalic, EOMI, MMM, no goiter or JVD Cardiovascular: RRR, no m/r/g, HR in the 60s Lungs: Diminished breath sounds B, but especially so on the R. Gastrointestinal: soft, nontender, nondistended Genitourinary: deferred Extremities: no e/c/c BLE's, 1+ pedal pulses B Results Imaging Additional studies: CXR: Right basilar infiltrate which may represent atelectasis or pneumonia. EKG: NSR< HR 77, no acute ischemia, nonspecific ST-T changes. Labs Result diagrams: 08/02/20 11:45 08/02/20 11:45 Labs: Laboratory Results - last 24 hr 08/02/20 08/02/20 08/02/20 11:45 11:45 11:45 WBC 15.79 H RBC 5.45 Hgb 14.8 Hct 45.6 MCV 83.7 MCH 27.2 MCHC 32.5 RDW 14.0 Plt Count 194 MPV 10.3 Immature Gran % 0.4 Neutrophils % 83.6 Lymphocytes % 7.8 Monocytes % 7.7 Eosinophils % 0.3 Basophils % 0.2 Nucleated RBC % 0 Absolute Neutrophils 13.20 H Absolute Lymphocytes 1.23 Absolute Monocytes 1.22 H Absolute Eosinophils 0.05 Absolute Basophils 0.03 VBG Lactate 0.8 Sodium 136 Potassium 4.4 Chloride 103 Carbon Dioxide 27.2 Anion Gap 5.8 BUN 14 Creatinine 1.13 Estimated GFR/1.73 m2 >= 60.00 Glucose 108 H Calcium 8.8 Magnesium 2.0 Total Bilirubin 0.9 AST 12 L ALT 21 Alkaline Phosphatase 59 Troponin I < 0.05 Total Protein 7.2 Albumin 3.6 Urine Color Urine Clarity Urine pH Ur Specific [place] Urine Protein Urine Ketones Urine Blood Urine Nitrite Urine Bilirubin Urine Urobilinogen Ur Leukocyte Esterase Urine Glucose 08/02/20 14:02 WBC RBC Hgb Hct MCV MCH MCHC RDW Plt Count MPV Immature Gran % Neutrophils % Lymphocytes % Monocytes % Eosinophils % Basophils % Nucleated RBC % Absolute Neutrophils Absolute Lymphocytes Absolute Monocytes Absolute Eosinophils Absolute Basophils VBG Lactate Sodium Potassium Chloride Carbon Dioxide Anion Gap BUN Creatinine Estimated GFR/1.73 m2 Glucose Calcium Magnesium Total Bilirubin AST ALT Alkaline Phosphatase Troponin I Total Protein Albumin Urine Color Yellow Urine Clarity Clear Urine pH 6.5 Ur Specific [place] 1.010 Urine Protein Negative Urine Ketones Negative Urine Blood Negative Urine Nitrite Negative Urine Bilirubin Negative Urine Urobilinogen 0.2 Ur Leukocyte Esterase Negative Urine Glucose Negative Last Vital Signs Temp 36.4 C L 08/02/20 14:20 Pulse 69 08/02/20 13:46 Resp 18 08/02/20 14:20 BP 112/70 08/02/20 13:46 Pulse Ox 94 08/02/20 14:20 COVID-19 Screening Have you,or household,traveled outside [place] in last 14 days?: No Recent travel in the [facility] within the last 14 days?: No Recent out of the country travel within the last 14 days?: No Exposure or possible exposure to illness during travel?: No Had IN PERSON contact w/suspected or confirmed C-19 person: No Have you had the following symptoms in the past few days?: Yes Symptoms noted since travel?: Fever and Lower Respiratory
[2020-08-02 15:35] LABS: Troponin I < 0.05 ng/mL (<0.06)
[2020-08-02] MEDS: predniSONE 20 MG TAB 40 MG PO (17:17)
[2020-08-02] MEDS: Acetaminophen 325 MG TAB PO (18:21)
[2020-08-02] MEDS: Albuterol/Ipratropium 3 ML UPD VIAL UPD (18:24)
[2020-08-02] MEDS: Budesonide/Formoterol 160/4.5 6 GM 60 PUFF INH IH (20:21)
[2020-08-03] VITALS (82 sets, daily range): BP systolic 97–121; BP diastolic 47–65; PULSE 56–106; RESP 1–32; TEMP 36.4–37; O2SAT 90–98
[2020-08-03] MEDS: Acetaminophen 325 MG TAB PO (02:13)
[2020-08-03] MEDS: Normal Saline 1,000 ML 150 ML IV (02:42)
[2020-08-03] MEDS: Albuterol/Ipratropium 3 ML UPD VIAL UPD ×3 (05:28→11:38)
[2020-08-03 07:11] LABS: Abs Immature Grans 0.07 10^3/uL (0.0-0.06); Absolute Basophil Count 0.02 10^3/uL (0.0-0.2); Absolute Lymphocyte Count 1.54 10^3/uL (1.2-3.4); Absolute Neutrophil Count 13.05 10^3/uL (1.2-6.7); Basophils % 0.1; HCT 42.2 % (40.0-50.0); HGB 13.3 g/dL (13.5-17.5); Immature Grans % 0.5; Lymphocytes % 9.9; MCH 26.9 pg (27.0-33.0); MCHC 31.5 % (32.0-36.0); MCV 85.4 fL (80-95); MPV 10.3 fL (8.0-11.0); Monocytes % 5.5; Nucleated RBC 0 %; Platelet Count 174 10^3/uL (130-400); RBC 4.94 10^6/uL (4.36-5.78); RDW-SD 43.5 fL; WBC 15.54 10^3/uL (4.4-10.8)
[2020-08-03 07:19] LABS: Absolute Monocyte Count 0.85 10^3/uL (0.1-0.8)
[2020-08-03] MEDS: Budesonide/Formoterol 160/4.5 6 GM 60 PUFF INH IH (07:44)
[2020-08-03 07:45] LABS: BUN 13 mg/dL (7-18); CO2 24.8 mmol/L (21.0-32.0); Calcium 8.2 mg/dL (8.5-10.1); Glucose 123 mg/dL (74-106)
[2020-08-03 08:13] LABS: Procalcitonin < 0.1 ng/mL
--- NOTE | 2020-08-03 08:13 | PGE_ITS ---
Subjective Subjective Interval history since last seen: wants to go home. No fever. A&Ox3, independent. Clear lungs. Not requiring oxygen. Used BiPAP x 2 hours overnight. Refused TEDs/SCDs. HR 60-70's. Objective Last Vital Signs Temp 36.4 C L 08/03/20 04:00 Pulse 73 08/03/20 04:00 Resp 19 08/03/20 04:00 BP 98/50 L 08/03/20 04:00 Pulse Ox 98 08/03/20 04:00 Laboratory Results - last 24 hr 08/02/20 08/02/20 08/02/20 11:45 11:45 11:45 WBC 15.79 H RBC 5.45 Hgb 14.8 Hct 45.6 MCV 83.7 MCH 27.2 MCHC 32.5 RDW 14.0 Plt Count 194 MPV 10.3 Immature Gran % 0.4 Neutrophils % 83.6 Lymphocytes % 7.8 Monocytes % 7.7 Eosinophils % 0.3 Basophils % 0.2 Nucleated RBC % 0 Absolute Neutrophils 13.20 H Absolute Lymphocytes 1.23 Absolute Monocytes 1.22 H Absolute Eosinophils 0.05 Absolute Basophils 0.03 VBG Lactate 0.8 Sodium 136 Potassium 4.4 Chloride 103 Carbon Dioxide 27.2 Anion Gap 5.8 BUN 14 Creatinine 1.13 Estimated GFR/1.73 m2 >= 60.00 Glucose 108 H Calcium 8.8 Magnesium 2.0 Total Bilirubin 0.9 AST 12 L ALT 21 Alkaline Phosphatase 59 Troponin I < 0.05 Total Protein 7.2 Albumin 3.6 Urine Color Urine Clarity Urine pH Ur Specific [place] Urine Protein Urine Ketones Urine Blood Urine Nitrite Urine Bilirubin Urine Urobilinogen Ur Leukocyte Esterase Urine Glucose 08/02/20 08/02/20 08/03/20 14:02 14:40 06:15 WBC 15.54 H RBC 4.94 Hgb 13.3 L Hct 42.2 MCV 85.4 MCH 26.9 L MCHC 31.5 L RDW 14.0 Plt Count 174 MPV 10.3 Immature Gran % 0.5 Neutrophils % 84.0 Lymphocytes % 9.9 Monocytes % 5.5 Eosinophils % 0.0 Basophils % 0.1 Nucleated RBC % 0 Absolute Neutrophils 13.05 H Absolute Lymphocytes 1.54 Absolute Monocytes 0.85 H Absolute Eosinophils 0.00 Absolute Basophils 0.02 VBG Lactate Sodium Potassium Chloride Carbon Dioxide Anion Gap BUN Creatinine Estimated GFR/1.73 m2 Glucose Calcium Magnesium Total Bilirubin AST ALT Alkaline Phosphatase Troponin I < 0.05 Total Protein Albumin Urine Color Yellow Urine Clarity Clear Urine pH 6.5 Ur Specific [place] 1.010 Urine Protein Negative Urine Ketones Negative Urine Blood Negative Urine Nitrite Negative Urine Bilirubin Negative Urine Urobilinogen 0.2 Ur Leukocyte Esterase Negative Urine Glucose Negative
[2020-08-03 08:28] LABS: Anion Gap 8.2 mmol/L (3-11); Chloride 108 mmol/L (98-107); Potassium 4.5 mmol/L (3.5-5.1); Sodium 141 mmol/L (136-145)
[2020-08-03] MEDS: predniSONE 20 MG TAB 40 MG PO (08:31)
[2020-08-03] MEDS: Pantoprazole 40 MG TABCR PO (08:31)
[2020-08-03] MEDS: Magnesium Chloride 64 MG TABCR PO (08:31)
[2020-08-03] MEDS: Potassium Chloride 20 MEQ TABCR PO (08:31)
[2020-08-03] MEDS: Ascorbic Acid 500 MG TAB PO (08:31)
[2020-08-03] MEDS: cefTRIAXone 1 GM/50 ML BAG IVPB (08:32)
[2020-08-03] MEDS: AZITHROMYCIN 500 MG in Normal Saline 250 ML 250 MG IVPB (08:32)
--- NOTE | 2020-08-03 10:25 | INITIAL_ITS ---
- If Service Date Differs Date of service: 08/03/20 Time of Service: 10:25 Care Management Initial Assess REASON FOR HOSPITALIZATION:: Sepsis due to CAP, COPD and hypotension PAST MEDICAL HISTORY/PAST SURGICAL HISTORY:: AK (actinic keratosis). Anorectal fistula. Chronic obstructive pulmonary disease. Other pulmonary embolism without acute cor pulmonale. Otitis externa. Relapsing polychondritis. Seborrheic keratoses (07/25/17). skin of submandibular region, right. History of Tobacco use. Tubular adenoma of colon. Surgical History. Knee surgary as a child. fistula plug 05/2012 PREVIOUS FUNCTIONAL STATUS/SOCIAL/FAMILY SUPPORTS:: Miguel is independent he lives with his spouse Monserrat in [place], [place]. CURRENT FUNCTIONAL STATUS:: Miguel is in his room he is currently being ruled out for COVID related to symptoms. CM did not compelte a face to face visit. CM did review the discharge plan with primary RN and provider. ADVANCE DIRECTIVES:: On file spouse Monserrat is his agent Has patient been provided with info about the portal/API?: No Did the patient sign up for the portal?: No (prev. enrolled) CODE STATUS:: Full Code INSURANCE COVERAGE / FINANCIAL ISSUES:: Medicare CURRENT HOME/COMMUNITY SERVICES/EQUIPMENT:: None at this time PRIMARY CARE PHYSICIAN:: POTENTIAL DISCHARGE NEEDS:: follow up with his primary care, is aware of patients admission and stopped into see him prior to discharge. PATIENT/FAMILY EDUCATION NEEDS:: Discharge education, limitations and follow up plan of care reviewed by primary nurse. ANTICIPATED BARRIERS TO DISCHARGE:: None TRANSPORTATION:: Via private car with spouse at time of discharge. PLAN:: Miguel is being discharged home today. There is a plan to manage his resp symptoms including medication mangement. No additional needs identified at this time.
--- NOTE | 2020-08-03 11:27 | PHA.REVIEW ---
Pharmacy Admission Review - Admission Clinical Review (Last Reviewed 08/02/20 @ 11:51 by Chery Gastelum) DVT prophylaxis (Acute) Discharge planning issues (Acute) Dehydration (Acute) Hypoxia (Acute) Acute exacerbation of chronic obstructive pulmonary disease (COPD) (Acute) Pneumonia (Acute) No Known Allergies Allergy (Unverified 08/02/20 11:52) Height 6 ft Weight 89.4 kg - Renal Dosing Renal Dosing: BUN 13 mg/dL (7-18) 08/03/20 06:15 Creatinine 1.10 mg/dL (0.70-1.30) 08/03/20 06:15 Medications needing adjustments: Reviewed (crcl ~70ml/min) - Anticoagulation Anticoagulation: Hgb 13.3 g/dL (13.5-17.5) L 08/03/20 06:15 Hct 42.2 % (40.0-50.0) 08/03/20 06:15 Plt Count 174 10^3/uL (130-400) 08/03/20 06:15 Creatinine 1.10 mg/dL (0.70-1.30) 08/03/20 06:15 DVT Prohphylaxis: N/A Therapeutic Anticoagulation: N/A - Opiate Usage Evaluate Pain Scale/Pains Meds: N/A - Relevant Labs Sodium 141 mmol/L (136-145) 08/03/20 06:15 Potassium 4.5 mmol/L (3.5-5.1) 08/03/20 06:15 Chloride 108 mmol/L (98-107) H 08/03/20 06:15 Magnesium 2.0 mg/dL (1.8-2.4) 08/03/20 06:15 C-Reactive Protein 9.50 mg/dL (0.0-0.3) H 08/03/20 06:15 Electrolytes, C-Reactive P, ESR: Reviewed - DM Control DM Control: Glucose 123 mg/dL (74-106) H 08/03/20 06:15 Insulin Dosing: N/A - Heart Failure/ID Heart Failure/ID: Troponin I < 0.05 ng/mL (<0.06) 08/02/20 14:40 EF%, LULU's, B-Blockers, Diuretics: N/A - BP Control BP Control: Blood Pressure 121/58 Blood Pressure 100/47 Blood Pressure 98/60 Blood Pressure 98/50 Blood Pressure 97/54 If elevated: Reviewed - Qtc Review List meds needing interventions: QTc 413 - IV to PO Switch IV Medications: Reviewed - Home Meds Home Med List reviewed: Reviewed Relevent Home Meds Not ordered & why?: Does have history of filling all 3 inhalers - Anoro, Symbicort, and spiriva although using all three does result in therapeutic duplications: both Spiriva, Anoro and Symbicort contain a ICS and both Anoro and Spiriva contain a LAMA HOWEVER it appears patient might alternate using the Anoro with the Symbicort but symbicort directions state alternate with advair?? Will call Dr. Almaraz's office for clarification. Gene Fuentes might be a good choice if he wants to simplify his regimen;
--- NOTE | 2020-08-03 13:40 | W.PM.DS.N ---
Date of service: 08/03/20 Time of Service: 13:40 DS: Diagnosis Discharge Diagnosis (1) Acute exacerbation of chronic obstructive pulmonary disease (COPD): Status: Acute (2) Pneumonia: Status: Acute (3) COVID-19: Status: Suspected Asessment and Plan: COVID-19 testing in process at the time of discharge (4) Hypoxia: Status: Resolved (5) Dehydration: Status: Acute Discharge Plan Disposition Patient Disposition: HOME Condition: Improving Discharge Details Reason For Visit: SEPSIS DUE TO CAP, COPD EXACERBATION, HYPOTENSION; Admit Date/Time: 08/02/20 13:16 Admit Provider: Komal Armstrong Attending Provider: Komal Armstrong Primary Care Provider: Dania Almaraz [facility] Course Hospital Course: Mr Goncalves is a 69 year old male with PMHx of non-oxygen dependent COPD with frequent exacerbations and prior pneumonias, who was admitted to [facility] hospitalist service on 08/02/2020, presenting with 2 weeks of dry cough as well as new fevers, headache, myalgias, and shortness of breath. He also noticed hypoxia to 88% at home as measured by his own pulse-oximeter. He was considered a person under investigation for COVID-19, though he did not have any confirmed COVID-19 contacts or a travel history, based on his symptoms. He did have an infiltrate in his RLL, for which he was initiated on azithromycin and ceftriaxone. We initiated systemic steroids as well. The patient was briefly monitored in the ICU as he initially had systolic blood pressures in the 90s, but was downgraded to medical surgical status within 1 hour of arrival to the ICU. He feels significantly better on his hospital day 2 and is not requiring oxygen on ambulation. He is being discharged home today with 3 more days of antibiotics and steroids. His COVID-19 test is still pending and will need to be followed up as outpatient. Care for patient as well as completion of his discharge summary took 45 minutes on the day of discharge. Home Meds and New Rx's Prescriptions: New prednisone 20 mg Tablet 40 mg PO DAILY Qty: 6 RF: 0 pantoprazole 40 mg Tablet,Delayed Release (Dr/Ec) 40 mg PO DAILY@0730 Qty: 30 RF: 0 cefpodoxime 200 mg tablet 200 mg PO BID Qty: 6 RF: 0 azithromycin 500 mg tablet 500 mg PO DAILY 3 Days Qty: 3 RF: 0 Continued ascorbic acid (vitamin C) 500 mg capsule 500 mg PO DAILY RF: 0 albuterol sulfate [ProAir HFA] 90 mcg/actuation HFA aerosol inhaler 1 - 2 puff Inhalation Q4H PRN Qty: 3 RF: 12 budesonide-formoterol [Symbicort] 160-4.5 mcg/actuation HFA aerosol inhaler 2 puff Inhalation BID Qty: 3 RF: 12 magnesium chloride [Mag 64] 64 mg tablet,delayed release (DR/EC) 64 mg PO BID Qty: 180 RF: 12 potassium chloride [Klor-Con M20] 20 mEq tablet,ER particles/crystals 20 meq PO BID Qty: 180 RF: 12 tamsulosin [Flomax] 0.4 mg capsule 0.4 mg PO HS Qty: 90 RF: 12 Spiriva with HandiHaler 18 mcg capsule, w/inhalation device 1 cap Inhalation DAILY Qty: 3 RF: 12 doxycycline hyclate 100 mg capsule 100 mg PO BID Qty: 14 RF: 6 azithromycin 250 mg tablet See Rx Instructions PO .COMPLEX Qty: 6 RF: 3 Anoro Ellipta 62.5-25 mcg/actuation blister with device 1 ea Inhalation DAILY Qty: 3 RF: 11 amoxicillin-pot clavulanate [Augmentin] 875-125 mg tablet 1 tab PO BID PRNRF: 0 Discharge Instructions Instructions: Prednisone (By mouth), Azithromycin (By mouth), Cefpodoxime Proxetil (By mouth), Aspiration Pneumonia (DC) Additional Instructions: Finish your antibiotics and steroids as prescribed. Return to the hospital with any fever, bleeding, chest pain, or shortness of breath. Follow up on your COVID-19 test on the patient portal. Continue to self-isolate until your result is known. Referrals: Dania Almaraz MD, [place] [Primary Care Provider] - Activity:: Activity as Tolerated Equipment/Supplies:: No Equipment Needed Diet:: As Tolerated Discharge Orders Discharge Orders: Discharge Order (Routine); Ordered 08/03/20 Ordered By: Komal Armstrong DS: Summary Status at Discharge Functional status at discharge: independent ambulation Overall status at discharge: patient is progressing back to baseline Mental Status: mental status grossly normal Speech and Movement: speech and movement normal Mood: congruent mood Affect: normal affect Exam Narrative Exam Narrative: General: Very pleasant middle-aged male who is not dyspneic/tachypenic/cyanotic, looks better than yesterday. HEENT: EOMI, MMM, no goiter or JVD Cardiovascular: RRR, no m/r/g, HR in the 60s Lungs: CTAB Gastrointestinal: soft, nontender, nondistended Extremities: no e/c/c BLE's, 1+ pedal pulses B Psych Mental Status: mental status grossly normal Speech and Movement: speech and movement normal Mood: congruent mood Affect: normal affect DS: Data Vitals/I&O Vitals and I&O: Vital Signs Temperature 37 C 08/03/20 12:35 Temperature Source Temporal Artery Scan 08/03/20 12:35 Pulse 65 08/03/20 11:54 Pulse Rhythm Regular 08/03/20 00:00 Pulse 77 08/03/20 11:00 Respiratory Rate 17 08/03/20 11:54 Respiratory Effort Non-Labored 08/03/20 12:35 Respiratory Depth Normal 08/03/20 12:35 Respiratory Pattern Normal 08/03/20 12:35 Blood Pressure 121/58 L 08/03/20 10:41 Blood Pressure Mean 73 08/03/20 10:41 Blood Pressure Position Supine 08/02/20 11:36 Pulse Oximetry 98 08/03/20 11:54 Oxygen Delivery Method Room Air 08/03/20 12:35 Oxygen Flow Rate 0 08/03/20 12:35 Fraction of Inspired Oxygen (FIO2) 21 08/03/20 08:00 Pain Level 0 08/03/20 12:35 Comment 08/02/20 21:10 Intake & Output 08/02/20 08/03/20 08/03/20 23:59 11:59 23:59 Intake Total 2695 / 2695 1825 / 1825 Output Total 1000 / 1000 2099 / 2099 Balance 1695 / 1695 -275 / -275 Weight 88 kg 89.4 kg Intake: IV 2175 / 2175 955 / 955 Oral 520 / 520 870 / 870 Output: Urine 1000 / 1000 2099 / 2099 Other: Urine Color Yellow Light Guillermina Urine Appearance Clear Clear Urine Odor None None Voiding Methods Urinal Urinal Data Completed and Pending Completed studies during hospitalization [Text1]: CXR: Right basilar infiltrate which may represent atelectasis or pneumonia. Pending studies at discharge: COVID-19 pending Labs on day of discharge: Labs from last 24 hours 08/03/20 08/03/20 08/03/20 06:15 06:15 06:15 WBC 15.54 H RBC 4.94 Hgb 13.3 L Hct 42.2 MCV 85.4 MCH 26.9 L MCHC 31.5 L RDW 14.0 Plt Count 174 MPV 10.3 Immature Gran % 0.5 Neutrophils % 84.0 Lymphocytes % 9.9 Monocytes % 5.5 Eosinophils % 0.0 Basophils % 0.1 Nucleated RBC % 0 Absolute Neutrophils 13.05 H Absolute Lymphocytes 1.54 Absolute Monocytes 0.85 H Absolute Eosinophils 0.00 Absolute Basophils 0.02 Sodium 141 Potassium 4.5 Chloride 108 H Carbon Dioxide 24.8 Anion Gap 8.2 BUN 13 Creatinine 1.10 Estimated GFR/1.73 m2 >= 60.00 Glucose 123 H Calcium 8.2 L Magnesium 2.0 Troponin I C-Reactive Protein 9.50 H Procalcitonin < 0.1 Urine Color Urine Clarity Urine pH Ur Specific [place] Urine Protein Urine Ketones Urine Blood Urine Nitrite Urine Bilirubin Urine Urobilinogen Ur Leukocyte Esterase Urine Glucose 08/02/20 08/02/20 14:40 14:02 WBC RBC Hgb Hct MCV MCH MCHC RDW Plt Count MPV Immature Gran % Neutrophils % Lymphocytes % Monocytes % Eosinophils % Basophils % Nucleated RBC % Absolute Neutrophils Absolute Lymphocytes Absolute Monocytes Absolute Eosinophils Absolute Basophils Sodium Potassium Chloride Carbon Dioxide Anion Gap BUN Creatinine Estimated GFR/1.73 m2 Glucose Calcium Magnesium Troponin I < 0.05 C-Reactive Protein Procalcitonin Urine Color Yellow Urine Clarity Clear Urine pH 6.5 Ur Specific [place] 1.010 Urine Protein Negative Urine Ketones Negative Urine Blood Negative Urine Nitrite Negative Urine Bilirubin Negative Urine Urobilinogen 0.2 Ur Leukocyte Esterase Negative Urine Glucose Negative 08/02/20 12:50 Blood Blood Culture - Pending 08/02/20 11:50 Blood Blood Culture - Pending Preliminary micro results at discharge 08/02/20 12:50 Blood Culture - Pending Blood 08/02/20 11:50 Blood Culture - Pending Blood [facility] Medical History AK (actinic keratosis) Anorectal fistula Chronic obstructive pulmonary disease with frequent exacerbations [id number]; Severe obs.disease; -A1,AD; FEV1=24% 09/05 neg. 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 TOLEDO-08/19/14; ear inflammation - could effect trachea in the future Seborrheic keratoses (07/25/17) skin of submandibular region, right Smoker 12/26/12 60 pack yrs.; quit 90's Smoker (12/26/12) Tubular adenoma of colon (~05/25/20) Surgical History Colonoscopy - MAC (~1998) Excision, Skin Mass (07/25/17) skin of submandibular region, right, seborrheic keratosis H/O knee surgery age 6 H/O surgical procedure fistula plug placed 05/2012 hernia repair knee repair age 6 PROCEDURES FISTULAS PLUG PLACED 06/23/12 (DR. RAMOS BAI) S/P hernia repair Family History Mother Ulcer Alzheimer disease Dementia OA (osteoarthritis) COPD (chronic obstructive pulmonary disease) Father COPD (chronic obstructive pulmonary disease) Pancreatic cancer Asthma Sister Essential hypertension Asthma Brother No problems noted. Paternal Grandfather Cancer Maternal Grandmother Cancer Paternal Grandmother Cancer Son Asthma Son Essential hypertension Son No problems noted. Social History Smoking/Tobacco Use Status: Former Tobacco Use Quit Date: 09/30/82 Tobacco: How many years used: 35 Smoking risk assessment performed?: Yes Alcohol Intake: current Alcohol Intake frequency: 0-2 drinks per day Alcohol type: beer and hard liquor Drug use: Never Substance use type: does not use Household members: spouse Pets and animals: No What type of physical activity do you participate in: walking Duration: 45-60 minutes/day Frequency: 3-4 times per week Little/Mu-Ism: No preference Special little needs: No Do you feel safe at home: Yes Do you feel safe in your relationship?: Yes
[2020-08-04 09:08] LABS: SARS-CoV-2 RNA Not Detected (NotDetected); SARS-CoV-2 RNA Source Nasopharynx
== END 2020-08-03 15:20 | disposition home or self-care (01) | DRG 194 ==
LOC: ER 13:15 → ICU 14:11
PROVIDERS: Admitting Provider Internal Medicine; Emergency Provider Registered Nurse Emergency; PCP Family Medicine; Visit Provider Internal Medicine
DX: J18.9 Pneumonia, unspecified organism (principal); J44.0 Chronic obstructive pulmonary disease with (acute) lower respiratory infection; J44.1 Chronic obstructive pulmonary disease with (acute) exacerbation; E86.0 Dehydration; R09.02 Hypoxemia; M94.1 Relapsing polychondritis; Z87.891 Personal history of nicotine dependence
CPT/HCPCS: 36415; 80048; 80053; 84145; 87040; 93005; 94618; 94640; 96365; 96375; 99223; 99239; 99285; J1650; U0003; 71045; 81003; 83605; 83735; 84484; 85025; 86140; 93010; 94660; 99284; J0456; J0696; J7512; J7620

== ENCOUNTER 2020-12-29 02:01 | Outpatient (CLI) | payer MEDICARE, OTHER, SELFPAY ==
--- NOTE | 2020-12-29 07:45 | DI.RAD_ITS ---
EXAM: XR KNEE RT 3V AP,LAT,ALEXEI CLINICAL HISTORY: r knee pain,M25.561. TECHNIQUE: 2D digital imaging was performed. COMPARISON: No exams were available for comparison FINDINGS: No evidence of fracture or obvious joint effusion. No joint space narrowing. No osteophytes. No os seous lesions IMPRESSION: DATA REPOSITORY: RADIATION DOSE DELIVERED:
== END 2020-12-29 02:21 ==
PROVIDERS: PCP Family Medicine; Visit Provider Family Medicine
DX: M25.561 Pain in right knee (principal)
CPT/HCPCS: 73562

== ENCOUNTER 2021-07-13 02:37 | Outpatient (CLI) | payer MEDICARE, OTHER, SELFPAY ==
[2021-07-13 08:21] LABS: HCT 47.5 % (40.0-50.0); HGB 14.8 g/dL (13.5-17.5); MCH 27.2 pg (27.0-33.0); MCHC 31.2 % (32.0-36.0); MCV 87.2 fL (80-95); MPV 10.3 fL (8.0-11.0); Platelet Count 178 10^3/uL (130-400); RBC 5.45 10^6/uL (4.36-5.78); RDW 14.1 % (11.8-14.1); RDW-SD 45.7 fL; WBC 5.29 10^3/uL (4.4-10.8)
[2021-07-13 09:23] LABS: ALT 26 U/L (16-63); AST 16 U/L (15-37); Albumin 3.9 g/dL (3.4-5.0); Alkaline Phosphatase 50 U/L (46-116); Anion Gap 6.7 mmol/L (3-11); BUN 14 mg/dL (7-18); Bilirubin, Total 0.6 mg/dL (0.2-1.0); CO2 29.3 mmol/L (21.0-32.0); CREATININE 1.2 mg/dL (0.70-1.30); Calcium 8.9 mg/dL (8.5-10.1); Calculated LDL 130 mg/dL (<100); Chloride 107 mmol/L (98-107); Cholesterol 215 mg/dL (<200); Estimated GFR 59.86 (mL/min/1.73m2); Glucose 102 mg/dL (74-106); HDL Cholesterol 70 mg/dL (40-60); Magnesium 2.2 mg/dL (1.8-2.4); Sodium 143 mmol/L (136-145); Total Protein 6.9 g/dL (6.4-8.2); Triglyceride 77 mg/dL (<150)
[2021-07-13 23:14] LABS: PSA, Diagnostic 2.5 ng/mL (0.0-6.5)
== END 2021-07-13 02:38 | disposition home or self-care (01) ==
LOC: LBO 02:37
PROVIDERS: PCP Family Medicine; Visit Provider Family Medicine
DX: R09.02 Hypoxemia; J44.1 Chronic obstructive pulmonary disease with (acute) exacerbation; E78.5 Hyperlipidemia, unspecified; N40.0 Benign prostatic hyperplasia without lower urinary tract symptoms
CPT/HCPCS: 36415; 80053; 80061; 85027; 83735; 84153

== ENCOUNTER 2021-12-21 03:54 | Outpatient (CLI) | payer MEDICARE, OTHER, SELFPAY ==
[2021-12-21] MEDS: Albuterol HFA 18 GM 200 PUFF INH IH (09:00)
[2021-12-21] MEDS: Inhaler, Assist Device 1 EACH MC (09:01)
== END 2021-12-21 03:55 | disposition home or self-care (01) ==
LOC: RT 03:54
PROVIDERS: PCP Family Medicine; Visit Provider Family Medicine
DX: J44.9 Chronic obstructive pulmonary disease, unspecified (principal); R05.9 Cough, unspecified; Z87.891 Personal history of nicotine dependence; Z87.01 Personal history of pneumonia (recurrent); R94.2 Abnormal results of pulmonary function studies
CPT/HCPCS: 94060; 94726; 94729

== ENCOUNTER 2022-01-13 11:49 | Emergency (ER) | payer MEDICARE, OTHER, SELFPAY ==
[2022-01-13] VITALS (30 sets, daily range): BP systolic 104–132; BP diastolic 62–86; PULSE 53–75; RESP 12–25; TEMP 37; O2SAT 90–94
--- NOTE | 2022-01-13 12:15 | RT.EKG_ITS ---
APPROVED REPORT Exam: Resting ECG Reason for Exam: sob Patient Location: E HR:62 bpm ECG Measurements Heart Rate 62 AXIS MD 164 P 67 QRSd 89 QRS 71 QT 380 T 59 QTc 386 Conclusion Sinus rhythm...normal P axis, V-rate 60- 99 sinus rhtym, normal axis, normal intervals, non ischemic
--- NOTE | 2022-01-13 12:15 | DI.RAD_ITS ---
Exam(s) XR PORTABLE CHEST AP EXAM: XR PORTABLE CHEST AP CLINICAL HISTORY: cough/copd. TECHNIQUE: 2D digital imaging was performed. COMPARISON: CT CT CHEST WO from 07/21/[address] CHEST WO from 04/09/2019 CR XR PORTABLE CHEST AP from 08/02/2020 FINDINGS: Single AP portable view. Heart size is upper normal. The mediastinum is not widened. Previously present infiltrate in the right lung base seen on 08/02/2020 is no longer evident. Some s carring in the right upper lung is unchanged. Also in the lateral left lung base. There is also a s mall nodular density measuring 3 millimeters in the lateral left lung base, in below this is a small area of scarring. No large infiltrates. No pleural effusions. No pulmonary edema. No pneumothorax IMPRESSION: Previously present lung base infiltrates have resolved. There is a 3 millimeter nodule now evident i n the lateral left lung base. Requires appropriate follow-up. DATA REPOSITORY: RADIATION DOSE DELIVERED: All CT scans at this facility use at least one of these dose optimization techniques: automated exposure control; mA and/or kV adjustment per patient size (includes targeted e xams where dose is matched to clinical indication); or iterative reconstruction.
--- NOTE | 2022-01-13 12:40 | W.ED.GENAD ---
Discharge Plan Disposition Patient Disposition: HOME Condition: Stable Discharge Details Clinical Impression: Acute exacerbation of chronic obstructive pulmonary disease (COPD) Primary Care Provider: Dania Almaraz ED Provider: Mauri Gray Home Meds and New Rx's Prescriptions: Continued albuterol sulfate 2.5 mg /3 mL (0.083 %) solution for nebulization 2.5 mg inhalation QID PRN (Reason: shortness of breath or wheezing) Qty: 90 6RF Rx Instructions: J44.9 albuterol sulfate [ProAir HFA] 90 mcg/actuation HFA aerosol inhaler 1 - 2 puff Inhalation Q4H PRN Qty: 3 12RF azithromycin 250 mg tablet See Rx Instructions PO .COMPLEX Qty: 6 3RF Dose Instruction: take 500 mg today (day 1), then 250 mg for 4 days (days 2-5) PO Rx Instructions: reports PRN dose at home for COPD - Pt hasn't used for a year take 500 mg today (day 1), then 250 mg for 4 days (days 2-5) PO doxycycline hyclate 100 mg capsule 100 mg PO BID Qty: 14 6RF Label Comments: reports PRN dose at home for COPD - Pt hasn't used for a year Rx Instructions: reports PRN dose at home for COPD - Pt hasn't used for a year Mag 64 64 mg tablet,delayed release (DR/EC) 64 mg PO BID Qty: 180 12RF prednisone 20 mg tablet 40 mg PO DAILY Qty: 6 0RF Trelegy Ellipta 200-62.5-25 mcg blister with device 1 inh inhalation DAILY Qty: 30 12RF tadalafil [Cialis] 5 mg tablet 5 mg PO DAILY Qty: 30 12RF amoxicillin-pot clavulanate [Augmentin] 875-125 mg tablet 1 tab PO BID Qty: 14 3RF potassium chloride [Klor-Con M20] 20 mEq tablet,ER particles/crystals 20 meq PO BID Qty: 180 12RF ascorbic acid (vitamin C) 500 mg capsule 500 mg PO DAILY 0RF tamsulosin [Flomax] 0.4 mg capsule 0.4 mg PO HS Qty: 90 12RF Discharge Instructions Instructions: COPD (Chronic Obstructive Pulmonary Disease) (ED) Additional Instructions: Work-up in the ER does not reveal any obvious emergent process. CT imaging does reveal new clustered pulmonary nodule in the left upper lobe, recommend outpatient 3-6-month follow-up CT. As we discussed today there is no fever, elevated white count, or signs of pneumonia on your CT. Using shared decision making, it was chosen not to pursue an additional regimen of antibiotic. Instead you will continue taking your prednisone taper. Watch for new or worsening symptoms and return to the ER for any concerns. Lastly, please contact your primary care provider on Saturday to discuss your ER visit, ongoing symptoms, and need for outpatient reevaluation. Discharge Data Discharge Date/Time-TO BE ENTERED AT DEPARTURE: 01/13/22 15:20 Medical Decision Making 71-year-old gentleman, past medical history of COPD, presenting to the ER for concern of pneumonia. He reports that at least 10 days ago he developed a productive cough which did not improve with azithromycin nor his current steroid taper. Patient states because of his recurrent frequent pneumonia he has antibiotics and steroids at home for when this presents. He denies any chest pain or shortness of breath at rest but reports that when he coughs he does have some chest wall discomfort and that after a severe coughing episode he has difficulty catching his breath. He has been using a nebulizer at home at least 3 times daily. He denies fever, known sick exposure, pain or swelling in his legs. Clinically he appears well, nontoxic, hemodynamically stable, afebrile, O2 sat 93% on room air. Lungs are slightly diminished bilateral lower bases. Plan is to obtain IV access, routine screening laboratory values, a chest x-ray and a single troponin. Again, he reports that he has chest discomfort with coughing, extremely low suspicion for ACS. In the setting of no leg pain or swelling, hypoxia, hemoptysis, etc., extremely low suspicion for PE, will not pursue D-dimer. At about 1305 and was watching his heart rate on the monitor and although he was in the high 70s and 80s for a good portion of the time he did occasionally jump up to as high as 113. We will add on a D-dimer Laboratory values reveal a D-dimer of 1916 otherwise grossly unremarkable. BNP 26, troponin less than 50, COVID-negative. WBC of 8.21. Plan is to pursue a CTA of the chest. Chest x-ray ferritin obtained and was unremarkable. Patient remained stable, speaking full sentences, does not require any supplemental oxygen. He appears well, nontoxic, no respiratory distress. The CTA does not reveal any evidence of PE. There does appear to be a new clustered subcentimeter nodular pulmonary opacities within the left upper lobe, favored post infectious/inflammatory Discussed findings with patient and family. Patient is already finished a regimen of azithromycin. He does have a prescription for doxycycline. We discussed in the setting of recent antibiotic use, no evidence of acute infection on CT, no leukocytosis or fever, whether or not to initiate doxycycline therapy. Patient reports that he is actually feeling slightly better today when compared to a few days ago and believes he simply needs to allow the steroids to work. He does have the prescription for doxycycline and will begin to take it if things worsen. Patient and family have no additional questions or concerns and are comfortable discharge at this time. Strict discharge and return precautions were provided. Otherwise they will contact their primary care provider on Saturday to discuss her ER visit need for outpatient reevaluation. This documentation was generated using [employer] dictation system, please disregard any oddities of phrase or misspellings. Medical Records Medical records reviewed: Yes I reviewed the patient's medical records. Imaging Data Radiologic Study: Attestation: I personally reviewed and interpreted this imaging study as follows: Imaging: X-Ray Radiologist's impression: PROCEDURE INFORMATION: Exam: XR Chest Exam date and time: 01/13/2022 12:43 PM Age: 71 years old Clinical indication: Shortness of breath TECHNIQUE: Imaging protocol: XR of the chest. Views: 1 view. COMPARISON: CR XR PORTABLE CHEST AP 08/02/2020 12:12 PM FINDINGS: Lungs: Clear lungs. Pleural spaces: No sizable pleural effusion. No pneumothorax. Heart/Mediastinum: Cardiomediastinal silhouette is within normal limits. Bones/joints: No acute displaced fracture or dislocation. IMPRESSION: No acute cardiopulmonary process. Radiologic Study #2: Attestation: I personally reviewed and interpreted this imaging study as follows: Imaging: CT Scan Radiologist's impression: PROCEDURE INFORMATION: Exam: CTA Chest With Contrast Exam date and time: 01/13/2022 1:59 PM Age: 71 years old Clinical indication: Cough and shortness of breath; Patient HX: Elevated d-dimer TECHNIQUE: Imaging protocol: Computed tomographic angiography of the chest with contrast. 3D rendering (Not supervised by radiologist): MIP and/or 3D reconstructed images were created by the technologist. Radiation optimization: All CT scans at this facility use at least one of these dose optimization techniques: automated exposure control; mA and/or kV adjustment per patient size (includes targeted exams where dose is matched to clinical indication); or iterative reconstruction. Contrast material: OMNIPAQUE 350; Contrast volume: 100 ml; Contrast route: INTRAVENOUS (IV); COMPARISON: CT CHEST WO 04/09/2019 8:41 AM FINDINGS: Pulmonary arteries: Normal. No pulmonary emboli. Aorta: Mild atherosclerotic calcification of the aorta and its branches. Lungs: Severe emphysematous changes of the lungs. Scarring within the right upper lobe is reidentified. New clustered subcentimeter nodular opacities within the left upper lobe. Chronic atelectasis/scarring in the lingula. Subsegmental right lower lobe atelectasis. Pleural spaces: Unremarkable. No pneumothorax. No pleural effusion. Heart: Coronary artery calcifications. Lymph nodes: Unremarkable. No enlarged lymph nodes. Liver: Subcentimeter hypoattenuating focus in the anterior right hepatic lobe, too small to further characterize.Pancreas: Punctate calcifications within the pancreatic tail, likely sequelae chronic pancreatitis. Bones/joints: Mild multilevel degenerative changes of the spine. Soft tissues: Unremarkable. IMPRESSION: 1. No pulmonary emboli identified. 2. New clustered subcentimeter nodular pulmonary opacities within the left upper lobe, favored post infectious/inflammatory. However, recommend CT Chest at 3-6 months. If stable, then consider CT Chest at 2 years and 4 years. (Reference: James) Lab Data Lab results reviewed: Yes I reviewed the patient's lab results. Labs: Laboratory Tests Range/Units 01/13/22 01/13/22 01/13/22 12:30 12:34 12:34 WBC (4.4-10.8) 10^3/uL 8.21 RBC (4.36-5.78) 10^6/uL 5.41 Hgb (13.5-17.5) g/dL 14.6 Hct (40.0-50.0) % 46.8 MCV (80-95) fL 86.5 MCH (27.0-33.0) pg 27.0 MCHC (32.0-36.0) % 31.2 L RDW (11.8-14.1) % 14.3 H Plt Count (130-400) 10^3/uL 143 MPV (8.0-11.0) fL 10.3 Immature Gran % 0.4 Neutrophils % 74.2 Lymphocytes % 15.8 Monocytes % 8.4 Eosinophils % 1.0 Basophils % 0.2 Nucleated RBC % (0.0-0.3) % 0.0 Absolute Neutrophils (1.2-6.7) 10^3/uL 6.09 Absolute Lymphocytes (1.2-3.4) 10^3/uL 1.30 Absolute Monocytes (0.1-0.8) 10^3/uL 0.69 Absolute Eosinophils (0.0-0.7) 10^3/uL 0.08 Absolute Basophils (0.0-0.2) 10^3/uL 0.02 D-Dimer (<500) ng/mlFEU Sodium (136-145) mmol/L 139 Potassium (3.5-5.1) mmol/L 4.3 Chloride (98-107) mmol/L 104 Carbon Dioxide (21.0-32.0) mmol/L 27.8 Anion Gap (3-11) mmol/L 7.2 BUN (7-18) mg/dL 21 H Creatinine (0.70-1.30) mg/dL 1.2 Estimated GFR/1.73 m2 (mL/min/1.73m2) 59.68 Glucose (74-106) mg/dL 105 Calcium (8.5-10.1) mg/dL 8.8 Magnesium (1.8-2.4) mg/dL 2.1 Total Bilirubin (0.2-1.0) mg/dL 0.5 AST (15-37) U/L 17 ALT (16-63) U/L 26 Alkaline Phosphatase (46-116) U/L 61 Troponin I (<or=60) ng/L < 50 NT-Pro-B Natriuret Pep (<300) pg/mL 26 Total Protein (6.4-8.2) g/dL 7.0 Albumin (3.4-5.0) g/dL 3.7 COVID-19 Source Nasal/Nares SARS-CoV-2 (PCR) (Negative) Negative Range/Units 01/13/22 13:14 WBC (4.4-10.8) 10^3/uL RBC (4.36-5.78) 10^6/uL Hgb (13.5-17.5) g/dL Hct (40.0-50.0) % MCV (80-95) fL MCH (27.0-33.0) pg MCHC (32.0-36.0) % RDW (11.8-14.1) % Plt Count (130-400) 10^3/uL MPV (8.0-11.0) fL Immature Gran % Neutrophils % Lymphocytes % Monocytes % Eosinophils % Basophils % Nucleated RBC % (0.0-0.3) % Absolute Neutrophils (1.2-6.7) 10^3/uL Absolute Lymphocytes (1.2-3.4) 10^3/uL Absolute Monocytes (0.1-0.8) 10^3/uL Absolute Eosinophils (0.0-0.7) 10^3/uL Absolute Basophils (0.0-0.2) 10^3/uL D-Dimer (<500) ng/mlFEU 1916 H Sodium (136-145) mmol/L Potassium (3.5-5.1) mmol/L Chloride (98-107) mmol/L Carbon Dioxide (21.0-32.0) mmol/L Anion Gap (3-11) mmol/L BUN (7-18) mg/dL Creatinine (0.70-1.30) mg/dL Estimated GFR/1.73 m2 (mL/min/1.73m2) Glucose (74-106) mg/dL Calcium (8.5-10.1) mg/dL Magnesium (1.8-2.4) mg/dL Total Bilirubin (0.2-1.0) mg/dL AST (15-37) U/L ALT (16-63) U/L Alkaline Phosphatase (46-116) U/L Troponin I (<or=60) ng/L NT-Pro-B Natriuret Pep (<300) pg/mL Total Protein (6.4-8.2) g/dL Albumin (3.4-5.0) g/dL COVID-19 Source SARS-CoV-2 (PCR) (Negative) ECG Data Attestation: I personally reviewed and interpreted this ECG (s) as follows: Interpretation: Please see official report by Dr. Westfall. Sinus rhythm, ventricular rate 62, no STEMI HPI General Mode of arrival: ambulatory. Date/Time Provider Initiated Documentation: 01/13/22 11:50. Limitations to Documentation: no limitations. Information obtained by: patient and family. HPI Narrative: This is a 71-year-old gentleman, past medical history of COPD, he reports frequent pneumonia, presenting to the ER for ongoing productive cough, concern for pneumonia. Patient reports that he is a former smoker. He states that last week he completed a course of azithromycin without much improvement of his symptoms, is now on day 4 of steroids without much improvement. He reports that when he has a severe coughing episode that he does have some chest wall discomfort and that the coughing takes his breath away. He otherwise denies any chest pain or short of breath denies fever, headache, neck pain, abdominal pain, nausea, vomiting with pain or swelling in his legs. Patient reports that he is vaccinated and boosted against COVID. He is concerned that he may have an infection that he can spread to his . Related Data Home Medications Medication Instructions Recorded Confirmed ascorbic acid (vitamin C) 500 mg 500 mg PO DAILY cap 03/23/19 01/13/22 capsule albuterol sulfate 2.5 mg (3 mL) INHALATION QID PRN 06/27/21 01/13/22 #90 ml albuterol sulfate 90 mcg/actuation 1 - 2 puff INHALATION Q4H PRN #3 06/27/21 01/13/22 aerosol inhaler (ProAir HFA) inhaler amoxicillin 875 mg-potassium 1 tab PO BID #14 tab 06/27/21 01/13/22 clavulanate 125 mg tablet (Augmentin) azithromycin 250 mg tablet See Rx Instructions PO .COMPLEX #6 06/27/21 01/13/22 tab doxycycline hyclate 100 mg capsule 100 mg PO BID #14 tab-cap 06/27/21 01/13/22 fluticasone fur. 200 mcg-umeclid 1 inh INHALATION DAILY #30 ea 06/27/21 01/13/22 62.5 mcg-vilant 25 mcg inhalat.powder (Trelegy Ellipta) magnesium chloride 64 mg 64 mg PO BID #180 tab-cap 06/27/21 01/13/22 (magnesium chloride) tablet,delayed release (Mag 64) potassium chloride 20 mEq 20 meq PO BID #180 tab 06/27/21 01/13/22 tablet,extended release(part/cryst) (Klor-Con M) prednisone 20 mg tablet 40 mg PO DAILY #6 tab 06/27/21 01/13/22 tadalafil 5 mg tablet (Cialis) 5 mg PO DAILY #30 tab 06/27/21 01/13/22 tamsulosin 0.4 mg capsule (Flomax) 0.4 mg PO HS #90 tab-cap 09/18/21 01/13/22 Previous Rx's Medication Instructions Recorded albuterol sulfate 2.5 mg (3 mL) INHALATION QID PRN 06/27/21 #90 ml albuterol sulfate 90 mcg/actuation 1 - 2 puff INHALATION Q4H PRN #3 06/27/21 aerosol inhaler (ProAir HFA) inhaler amoxicillin 875 mg-potassium 1 tab PO BID #14 tab 06/27/21 clavulanate 125 mg tablet (Augmentin) azithromycin 250 mg tablet See Rx Instructions PO .COMPLEX #6 06/27/21 tab doxycycline hyclate 100 mg capsule 100 mg PO BID #14 tab-cap 06/27/21 fluticasone fur. 200 mcg-umeclid 1 inh INHALATION DAILY #30 ea 06/27/21 62.5 mcg-vilant 25 mcg inhalat.powder (Trelegy Ellipta) magnesium chloride 64 mg 64 mg PO BID #180 tab-cap 06/27/21 (magnesium chloride) tablet,delayed release (Mag 64) potassium chloride 20 mEq 20 meq PO BID #180 tab 06/27/21 tablet,extended release(part/cryst) (Klor-Con M) prednisone 20 mg tablet 40 mg PO DAILY #6 tab 06/27/21 tadalafil 5 mg tablet (Cialis) 5 mg PO DAILY #30 tab 06/27/21 tamsulosin 0.4 mg capsule (Flomax) 0.4 mg PO HS #90 tab-cap 09/18/21 Allergies Allergy/AdvReac Type Severity Reaction Status Date / Time No Known Allergies Allergy Unverified 01/13/22 12:06 General Stated Complaint: SOB JACE: 2 Review of Systems Constitutional Constitutional: Denies fever(s) and Denies weakness ENT Ears, Nose, Mouth, and Throat: Denies neck pain Cardiovascular Cardiovascular: Reports chest pain (When he coughs) and Reports dyspnea Comments: with coughing fit Respiratory Respiratory: Reports cough and Reports dyspnea Gastrointestinal Gastrointestinal: Denies abdominal pain, Denies nausea and Denies vomiting Musculoskeletal Musculoskeletal: Denies neck pain Integumentary/Breasts Skin/Breast: Denies rash Neurologic Neurologic: Denies weakness Hematologic/Lymphatic Hematologic/Lymphatic: Denies easy bleeding and Denies easy bruising PFSH All Active Problems (Updated 01/13/22 @ 15:02 by ROSS Enciso) SOB (shortness of breath) (Acute) Knee pain, right (Acute) Acute exacerbation of chronic obstructive pulmonary disease (COPD) (Acute) Pneumonia (Acute) Tubular adenoma of colon (Acute ~05/25/20) Hip pain (Acute) Low back pain (Acute) Seborrheic keratoses (Chronic 07/25/17) skin of submandibular region, right 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 TOLEDO-08/19/14; ear inflammation - could effect trachea in the future Chronic obstructive pulmonary disease with frequent exacerbations (Chronic) PFT-2003; Severe obs.disease; -A1,AD; FEV1=24% 09/05 neg. antitrypsin antibody FEV1-17% Medical History AK (actinic keratosis) Anorectal fistula COPD (chronic obstructive pulmonary disease) COVID-19 Other pulmonary embolism without acute cor pulmonale Otitis externa 05/20/14 Smoker 12/26/12 60 pack yrs.; quit 90's Smoker (12/26/12) Surgical History Colonoscopy - MAC (~1998) Excision, Skin Mass (07/25/17) skin of submandibular region, right, seborrheic keratosis H/O knee surgery age 6 H/O surgical procedure fistula plug placed 05/2012 hernia repair knee repair age 6 PROCEDURES FISTULAS PLUG PLACED 06/23/12 (DR. MAURI BAI) S/P hernia repair Family History Mother Ulcer Alzheimer disease Dementia OA (osteoarthritis) COPD (chronic obstructive pulmonary disease) Father COPD (chronic obstructive pulmonary disease) Pancreatic cancer Asthma Sister Essential hypertension Asthma Brother No problems noted. Paternal Grandfather Cancer Maternal Grandmother Cancer Paternal Grandmother Cancer Son Asthma Son Essential hypertension Son No problems noted. Social History Smoking/Tobacco Use Status: Former Tobacco Use Quit Date: 09/30/82 Tobacco: How many years used: 35 Smoking risk assessment performed?: Yes Alcohol Intake: current Alcohol Intake frequency: 0-2 drinks per day Alcohol type: beer and hard liquor Drug use: Never Substance use type: does not use Foster care: No Household members: spouse Housing: house Communication Needs: None Do you need help understanding health information?: Rarely Pets and animals: No Sexually active: Yes Do you think of yourself as: straight/heterosexual Current gender identity: male What is your relationship status?: How often do you talk on the phone with friends or family?: three or more times per week How often do you get together with friends or relatives?: twice per week Do you belong to any clubs or organized social groups?: no Panel score (0-1 are the most socially isolated patients): 2 What type of physical activity do you participate in: walking Duration: 45-60 minutes/day Frequency: 3-4 times per week Little/Christianity: No preference Special little needs: No Seatbelt use: always Drive intox or ride w/intox road train driver: No Do you feel safe at home: Yes Do you feel safe in your relationship?: Yes Exam Const General: cooperative, healthy appearing, comfortable and no acute distress Orientation: alert and awake [facility] Head: normal to inspection, normocephalic and atraumatic Eyes Conjunctivae: conjunctivae normal Neck Neck: normal visual inspection, full ROM, trachea midline and supple Resp Effort & Inspection: normal respiratory effort, able to speak in complete sentences and cough Quality of cough: dry (mild) Auscultation: diminished lung sounds bilaterally in the lower lung gar Cardio Rate: regular rate Rhythm: regular rhythm GI Palpation: soft and nontender Skin General skin exam: no rashes or lesions noted Neuro General: patient alert, patient awake, moves all extremities and no focal motor deficits Cognition: normal cognition Speech: speech normal Gait: normal gait Sensory Exam: no sensory deficits noted Extrem General: normal to inspection, full ROM, capillary refill normal, no pedal edema and no calf tenderness Psych Appearance: grossly normal Mental Status: mental status grossly normal Course Vital Signs Vital signs: Vital Signs Temperature 37.0 C 01/13/22 11:59 Pulse 72 01/13/22 11:59 Respiratory Rate 24 01/13/22 11:59 Blood Pressure 119/86 01/13/22 11:59 Pulse Oximetry 93 01/13/22 11:59 Temperature 37.0 C 01/13/22 11:59 Temperature Source Skin 01/13/22 11:59 Pulse 72 01/13/22 11:59 Respiratory Rate 19 01/13/22 12:36 Respiratory Effort 01/13/22 12:36 Respiratory Depth Normal 01/13/22 12:36 Respiratory Pattern Normal 01/13/22 12:36 Blood Pressure 119/86 01/13/22 11:59 Blood Pressure Position Sitting 01/13/22 11:59 Pulse Oximetry 93 01/13/22 11:59 Oxygen Delivery Method Room Air 01/13/22 11:59 Oxygen Flow Rate 0 01/13/22 11:59 Pain Level 0 01/13/22 11:59
[2022-01-13 12:44] LABS: Source Nasal/Nares
[2022-01-13 12:46] LABS: Abs Immature Grans 0.03 10^3/uL (0.0-0.06); Absolute Basophil Count 0.02 10^3/uL (0.0-0.2); Absolute Eosinophil Count 0.08 10^3/uL (0.0-0.7); Absolute Monocyte Count 0.69 10^3/uL (0.1-0.8); Absolute Neutrophil Count 6.09 10^3/uL (1.2-6.7); Basophils % 0.2; HCT 46.8 % (40.0-50.0); HGB 14.6 g/dL (13.5-17.5); Immature Grans % 0.4; Lymphocytes % 15.8; MCHC 31.2 % (32.0-36.0); MCV 86.5 fL (80-95); MPV 10.3 fL (8.0-11.0); Monocytes % 8.4; Neutrophils % 74.2; Platelet Count 143 10^3/uL (130-400); RBC 5.41 10^6/uL (4.36-5.78); RDW 14.3 % (11.8-14.1); RDW-SD 45.4 fL; WBC 8.21 10^3/uL (4.4-10.8)
[2022-01-13 13:07] LABS: ALT 26 U/L (16-63); AST 17 U/L (15-37); Albumin 3.7 g/dL (3.4-5.0); Alkaline Phosphatase 61 U/L (46-116); Anion Gap 7.2 mmol/L (3-11); BUN 21 mg/dL (7-18); Bilirubin, Total 0.5 mg/dL (0.2-1.0); CO2 27.8 mmol/L (21.0-32.0); CREATININE 1.2 mg/dL (0.70-1.30); Calcium 8.8 mg/dL (8.5-10.1); Chloride 104 mmol/L (98-107); Estimated GFR 59.68 (mL/min/1.73m2); Glucose 105 mg/dL (74-106); Magnesium 2.1 mg/dL (1.8-2.4); NT-proBNP 26 pg/mL (<300); Potassium 4.3 mmol/L (3.5-5.1); Sodium 139 mmol/L (136-145); Troponin I < 50 ng/L (<or=60)
--- NOTE | 2022-01-13 13:09 | DI.VRAD_ITS ---
PROCEDURE INFORMATION: Exam: XR Chest Exam date and time: 01/13/2022 12:43 PM Age: 71 years old Clinical indication: Shortness of breath TECHNIQUE: Imaging protocol: XR of the chest. Views: 1 view. COMPARISON: CR XR PORTABLE CHEST AP 08/02/2020 12:12 PM FINDINGS: Lungs: Clear lungs. Pleural spaces: No sizable pleural effusion. No pneumothorax. Heart/Mediastinum: Cardiomediastinal silhouette is within normal limits. Bones/joints: No acute displaced fracture or dislocation. IMPRESSION: No acute cardiopulmonary process. Dictated and Authenticated by: Adán Rojas MD. Ordering:KEITH Dotson MD
[2022-01-13 13:22] LABS: COVID-19 PCR Negative (Negative)
--- NOTE | 2022-01-13 13:45 | DI.CT_ITS ---
Exam(s) CT CHEST PE CTA EXAM: CT CHEST PE CTA CLINICAL HISTORY: cough/sob/elevated dimer. TECHNIQUE: Imaging Protocol: CT angiography of the chest was performed using pulmonary embolus sumit col. Multi planar reconstructions were performed. CONTRAST MATERIAL: Intravenous: Omnipaque 350 Contrast volume: 100 cc COMPARISON: CT CT CHEST WO from 04/09/2019 CR,XR XR PORTABLE CHEST AP from 01/13/2022 FINDINGS: CHEST: PULMONARY ARTERIES: There are no intraluminal filling defects to suggest acute pulmonary emboli. LUNGS: Right upper lobe scarring is unchanged from 2019.. There is an unchanged 2 millimeter nodule in the lateral aspect of the right upper lobe.. There is an unchanged 3 millimeter nodule in the lat eral basal segment of the right lower lobe. Also an unchanged 1 millimeter nodule lower down the lat eral basal segment right lower lobe. No pleural effusions. Nodular density in the anterior basal se gment of the left lower lobe is unchanged, measuring 1 cm by 0.5 cm. In the left upper lobe there is a new nodular infiltrate measuring 8 x 5 millimeters (series 4/image 31). No other new pulmonary findings. There are no pleural effusions. MEDIASTINUM: There is no hilar nor mediastinal adenopathy. Visualized thyroid unremarkable. CARDIAC: Heart size is upper normal. There is no pericardial effusion.Caliber of the thoracic aorta is within normal limits. There is no significant shift of the interventricular septum. PARTIALLY VISUALIZED UPPERMOST ABDOMEN: No obvious new findings OSSEOUS: No significant osseous lesions.No fractures.. IMPRESSION: 1. No evidence of acute pulmonary emboli. No evidence of pulmonary infarction.No pleural effusions. 2. There is a new clustered 8 x 5 millimeter nodular infiltrate in the left upper lobe. This is in a ddition to other smaller stable nodules bilaterally. 3. Recommend follow-up CT scan in 3 months. RADIATION DOSE DELIVERED: 426.03mGy.cm Total DLP DATA REPOSITORY: All CT scans at this facility are submitted to the National Radiology Data Registry (NRDR) Dose Index Registry (DIR) with the [employer] (A[employer]). RADIATION OPTIMIZATION: All CT scans at this facility use at least one of these dose optimization te chniques: automated exposure control; mA and/or kV adjustment per patient size (includes targeted exa ms where dose is matched to clinical indication); or iterative reconstruction.
[2022-01-13 13:50] LABS: D-Dimer 1916 ng/mlFEU (<500)
[2022-01-13] MEDS: Omnipaque 350 MG/ML 100 ML BTL IJ (14:15)
[2022-01-13] MEDS: Normal Saline Flush 10 ML SYR IVP (14:16)
--- NOTE | 2022-01-13 14:49 | DI.VRAD_ITS ---
PROCEDURE INFORMATION: Exam: CTA Chest With Contrast Exam date and time: 01/13/2022 1:59 PM Age: 71 years old Clinical indication: Cough and shortness of breath; Patient HX: Elevated d-dimer TECHNIQUE: Imaging protocol: Computed tomographic angiography of the chest with contrast. 3D rendering (Not supervised by radiologist): MIP and/or 3D reconstructed images were created by the technologist. Radiation optimization: All CT scans at this facility use at least one of these dose optimization techniques: automated exposure control; mA and/or kV adjustment per patient size (includes targeted exams where dose is matched to clinical indication); or iterative reconstruction. Contrast material: OMNIPAQUE 350; Contrast volume: 100 ml; Contrast route: INTRAVENOUS (IV); COMPARISON: CT CHEST WO 04/09/2019 8:41 AM FINDINGS: Pulmonary arteries: Normal. No pulmonary emboli. Aorta: Mild atherosclerotic calcification of the aorta and its branches. Lungs: Severe emphysematous changes of the lungs. Scarring within the right upper lobe is re-identified. New clustered subcentimeter nodular opacities within the left upper lobe. Chronic atelectasis/scarring in the lingula. Subsegmental right lower lobe atelectasis. Pleural spaces: Unremarkable. No pneumothorax. No pleural effusion. Heart: Coronary artery calcifications. Lymph nodes: Unremarkable. No enlarged lymph nodes. Liver: Subcentimeter hypoattenuating focus in the anterior right hepatic lobe, too small to further characterize. Pancreas: Punctate calcifications within the pancreatic tail, likely sequelae chronic pancreatitis. Bones/joints: Mild multilevel degenerative changes of the spine. Soft tissues: Unremarkable. IMPRESSION: 1. No pulmonary emboli identified. 2. New clustered subcentimeter nodular pulmonary opacities within the left upper lobe, favored post infectious/inflammatory. However, recommend CT Chest at 3-6 months. If stable, then consider CT Chest at 2 years and 4 years. (Reference: James) REFERENCES: James H, et al. Guidelines for Management of Incidental Pulmonary Nodules Detected on CT Images: From the Fleischner Society 2017. Radiology. 2017;284(1):228-243. Dictated and Authenticated by: Stone Major MD. Ordering:KEITH Dotson MD
== END 2022-01-13 15:20 | disposition home or self-care (01) ==
PROVIDERS: Emergency Provider Physician Assistant; PCP Family Medicine
DX: J44.1 Chronic obstructive pulmonary disease with (acute) exacerbation (principal); R06.02 Shortness of breath; R05.9 Cough, unspecified; R79.1 Abnormal coagulation profile; Z20.822 Contact with and (suspected) exposure to COVID-19; R91.8 Other nonspecific abnormal finding of lung field
CPT/HCPCS: 36415; 71275; 80053; 87635; 93005; 99284; 99285; 71045; 83735; 83880; 84484; 85025; 85379; 93010; J3490

== ENCOUNTER 2022-01-30 01:05 | Outpatient (CLI) | payer MEDICARE, OTHER, SELFPAY ==
--- NOTE | 2022-01-30 08:00 | DI.US_ITS ---
Exam(s) US LOWER EXTREMITY VENOUS RT EXAM: US LOWER EXTREMITY VENOUS RT CLINICAL HISTORY: right leg swelling,h/o blood clot, m79.89 TECHNIQUE: Grayscale, color, and doppler imaging of the deep venous system of the RIGHT lower extrem ity was performed. COMPARISON: US US LOWER EXTREMITY VASCULAR LT from 06/02/2019 FINDINGS: THIS IS A POSITIVE STUDY. There is DVT in the right femoral vein extending from the proximal aspect of this vein down through t he level of the knee-popliteal vein into the calf involving both posterior tibial veins and peroneal veins. Clot length is estimated at 55 cm. The ipsilateral saphenofemoral junction is patent. IMPRESSION: 1. Positive study with extensive DVT in the right lower extremity, both above and below the knee, as described above.. The cephalad extent of the clot is in the upper right femoral vein-upper thigh.. Estimated length of this intraluminal clot is approximately 55 cm Referring physician notified DATA REPOSITORY:
== END 2022-01-30 01:25 ==
PROVIDERS: PCP Family Medicine; Visit Provider Family Medicine
DX: R22.42 Localized swelling, mass and lump, left lower limb; I82.412 Acute embolism and thrombosis of left femoral vein; M79.89 Other specified soft tissue disorders
CPT/HCPCS: 93971

== ENCOUNTER → 2022-03-05 02:31 | Outpatient (CLI) | payer MEDICARE, OTHER, SELFPAY ==
--- NOTE | 2022-03-05 08:30 | DI.CT_ITS ---
Exam(s) CT CHEST WO EXAM: CT CHEST WO CLINICAL HISTORY: f/u abnl ct scan, r93.89, infiltrate TECHNIQUE: Imaging Protocol: Axial computed tomography images with coronal and sagittal reformatted images were created and reviewed CONTRAST MATERIAL: Intravenous: Omnipaque 350 Contrast volume:structured data in ml. COMPARISON: CT CT CHEST PE CTA from 01/13/2022 FINDINGS: Tracheobronchial tree: No bronchiectasis or mucous plugging. Mediastinum and Corrina: No dominant adenopathy or fluid collection. Pulmonary parenchyma: No consolidation or dominant measurable mass. Stable scarring right upper lobe . Scattered tiny nodules. The previously questioned roughly 8 millimeter left upper lobe nodular in filtrate is not apparently seen. Moderate emphysematous changes. Pleura: No effusion or pneumothorax. Heart: The heart is not dilated. Minimal coronary artery calcifications are seen. Aorta: Thoracic aorta non-dilated. Upper abdomen: Unremarkable. Lymph nodes: Within normal limits. Bones: Mild degenerative changes. Soft tissues: Unremarkable. IMPRESSION: Previously noted small left upper lobe nodular infiltrate no longer present. Underlying emphysematou s changes. No suspicious findings RADIATION DOSE DELIVERED: 577.73mGy.cm Total DLP DATA REPOSITORY: All CT scans at this facility are submitted to the National Radiology Data Registry (NRDR) Dose Index Registry (DIR) with the [employer] (ACR). RADIATION OPTIMIZATION: All CT scans at this facility use at least one of these dose optimization te chniques: automated exposure control; mA and/or kV adjustment per patient size (includes targeted exa ms where dose is matched to clinical indication); or iterative reconstruction.
== END ==
PROVIDERS: PCP Family Medicine; Visit Provider Family Medicine
DX: R91.8 Other nonspecific abnormal finding of lung field (principal)
CPT/HCPCS: 71250

== ENCOUNTER 2022-04-03 04:06 | Outpatient (CLI) | payer MEDICARE, OTHER, SELFPAY ==
--- NOTE | 2022-04-04 18:17 | W.PFT ---
Date of service: 04/03/22 Time of Service: 09:26 Pulmonary Function Test Result Requesting Provider Gary Indications: COPD 6 Minute Walk Test Distance walked:1500 feet Desaturations:98% to 92% at 6 minutes Heart rate changes:70 bpm to max of 94bpm at 5 minutes 30 seconds Recommendation: No supplemental oxygen required. Gloria Vega MD Pulmonary & Critical Care Medicine
== END 2022-04-03 04:07 | disposition home or self-care (01) ==
LOC: RT 04:08
PROVIDERS: PCP Family Medicine; Visit Provider Student in an Organized Health Care Education/Training Program
DX: J44.9 Chronic obstructive pulmonary disease, unspecified (principal)
CPT/HCPCS: 94618

== ENCOUNTER 2022-04-03 04:11 | Outpatient (CLI) | payer MEDICARE, OTHER, SELFPAY ==
[2022-04-03 09:26] LABS: BE 0 mmol/L (-2-3); HCO3 25 mmol/L (22-26); pCO2 41 mmHg (35-45); pO2 71 mmHg (80-105); sO2 95 % (95-98); tCO2 22 mmol/L (23-27)
[2022-04-03 09:29] LABS: FIO2 21 %; Site Right Radial
== END 2022-04-03 04:12 | disposition home or self-care (01) ==
LOC: RT 04:11
PROVIDERS: PCP Family Medicine; Visit Provider Student in an Organized Health Care Education/Training Program
DX: J44.9 Chronic obstructive pulmonary disease, unspecified (principal)
CPT/HCPCS: 82805; 94618; 36600

== ENCOUNTER → 2022-05-30 02:00 | Outpatient (CLI) | payer MEDICARE, OTHER, SELFPAY ==
--- NOTE | 2022-05-30 15:00 | DI.US_ITS ---
APPROVED REPORT EXAM: Comprehensive 2D, Doppler, and color-flow Echocardiogram Patient Location: Out-Patient [employer] Superintendent: Caryn Canada RDCS (AE) Indications: Concern for pulmonary HTN, Dyspnea, copd Other Information Study Quality: Adequate Conclusion Normal left ventricular wall thickness and chamber size. Estimated ejection fraction is 55 to 60%. Wall motion is normal. Normal right ventricular size and systolic function Both atria are normal in size [place] mildly sclerotic aortic valve without stenosis or regurgitation Dilated aortic root ( 4.17 cm)and ascending aorta (4.24 cm) Estimated right ventricular systolic pressure is 25 mmHg Wall motion Left Ventricle The left ventricle is normal size. The left ventricular systolic function is normal. The left ventric ular ejection fraction is within the normal range. There is normal left ventricular wall thickness. T here is normal LV segmental wall motion. There is no ventricular septal defect visualized. LVEF is 57 %. Right Ventricle Right ventricle is grossly normal in size. The right ventricular systolic function is normal. The RVS P is 24.6_ mmHg. Atria The left atrium size is normal. The right atrium size is normal. The interatrial septum is intact wit h no evidence for an atrial septal defect. Aortic Valve The aortic valve is mildly sclerotic There is no aortic valvular stenosis. No aortic regurgitation is present. Mitral Valve The mitral valve is normal in structure. No evidence of mitral valve stenosis. Trace mitral regurgita tion. Tricuspid Valve The tricuspid valve is normal in structure. There is no tricuspid valve stenosis. Trace tricuspid reg urgitation. Pulmonic Valve The pulmonary valve is normal in structure. There is no pulmonic valvular stenosis. Trace pulmonic re gurgitation. Great Vessels Aortic root is mild to moderately dilated. The ascending aorta is moderately dilated. Aortic arch is not well visualized. IVC is normal in size and collapses >50% with inspiration. Pericardium There is no pericardial effusion. 2D Dimensions IVSD d PLAX 0.80 cm M: 0.6-1.2 LV Vol A2C d MOD 112.9 mL LVPW d PLAX 0.81 cm M: 0.6 - 1.2 LV Vol A4C d MOD 118.4 mL LVID d PLAX 4.91 cm M: 4.2 - 5.8 LA vol/ BSA A2C s A-L 20.4 mL/m2 LVDs 3.40 cm M: 2.5 - 4.0 LA vol/ BSA A4C s A-L 28.2 mL/m2 Ao Root d 4.17 cm M: 3.1 - 3.7 LA Vol/ BSA Biplane s A-L 24.6 mL/m2 RA Area A4C 13.20 cm2 LA Area A4C s MOD 19.22 cm2 RA Vol/ BSA A4C s A-L 13.8 mL/m2 LA Area A2C s MOD 15.93 cm2 Ao Asc Diam d 4.24 cm M: 2.6 - 3.4 LV EF A4C MOD 57.7 % LV EF Teichholz 57.0 % LV EF A2C MOD 55.0 % LVEF (Kaur's) 56.97 % M: 52 - 72 LV EF Biplane MOD 57.0 % LV Volume 86.98 mL M: 62 - 150 SV 66.95 mL LV Volume Index 41.81 mL/m2 M: 34 - 74 SV Index 32.16 mL/m2 LV Vol Biplane MOD 117.5 mL FS 29.95 % M-Mode TAPSE 2.60 cm (M/F) >1.7 LV Diastology MV E' medial 0.080 (>0.07 m/s) E/A Ratio 0.8 LV E/e MED 5.75 (<14) MV E Vmax 0.46 (0.4-1.3 m/s) MV E' lateral 0.084 (>0.1 m/s) MV A Vmax 0.60 (0.4-1.3 m/s) LV E/e LAT 5.45 (<14) MV E/A Ratio 0.74 MV E/E' medial 5.77 MV E/E' lateral 5.50 Aortic Valve LVOT Area 3.89 cm2 AoV Area Vmax 3.32 cm2 LVOT Vmax 0.80 m/s AoV Area/ BSA (Vmax) 1.59 cm2/m2 LVOT Mean Brett. 0.50 m/s BRADLY Mean Brett. 2.97 cm2 LVOT Peak Grad 2.5 mmHg BRADLY Mean Brett. Index 1.43 cm2/m2 LVOT Mean Grad 1.2 mmHg LVOT VTI 0.182 m LVOT Diam s 2.20 cm AoV Vmax 0.93 m/s Velocity Ratio 0.86 AoV Mean Brett. 0.66 m/s AoV Peak Grad 3.5 mmHg LVOT SV 70.65 mL AoV Mean Grad 2.0 mmHg AoV VTI 0.192 m AoV Area VTI 3.67 cm2 AoV Area/ BSA (VTI) 1.77 cm/m2 Mitral Valve MV DT 316 (160-240 msec) MV PHT 92 msec MV Area PHT 2.40 cm2 MV VTI 0.256 m MV Area VTI 2.76 (4.0-6.0 cm2) Pulmonary Valve PV Vmax 0.96 (0.5-1.5 m/s) RVOT Peak Gr. 2.46 mmHg PV Peak Grad 3.7 mmHg RVOT Mean Gr. 1.00 mmHg PV Mean Grad 2.0 mmHg RVOT VTI 0.147 m PV VTI 0.189 m RVOT Vmax 0.78 m/s Tricuspid Valve TR Peak Grad 21.5 mmHg TR Vmax 2.32 m/s RA Pressure 3.00 mmHg RVSP (TR) 24.6 mmHg
== END ==
PROVIDERS: PCP Family Medicine; Visit Provider Student in an Organized Health Care Education/Training Program
DX: J44.1 Chronic obstructive pulmonary disease with (acute) exacerbation (principal); Z87.19 Personal history of other diseases of the digestive system; Z98.890 Other specified postprocedural states
CPT/HCPCS: 93306

== ENCOUNTER 2022-06-29 14:00 | Outpatient (RCR) | payer MEDICARE, OTHER, SELFPAY | END 2022-06-29 23:59 | disposition home or self-care (01) | LOC: PRC 14:00 | PROVIDERS: PCP Family Medicine; Referring Provider Student in an Organized Health Care Education/Training Program; Visit Provider Student in an Organized Health Care Education/Training Program | DX: J44.1 Chronic obstructive pulmonary disease with (acute) exacerbation (principal) | CPT/HCPCS: 94626 ==

== ENCOUNTER 2022-07-30 14:00 | Outpatient (RCR) | payer MEDICARE, OTHER, SELFPAY | END 2022-07-30 23:59 | disposition home or self-care (01) | LOC: PRC 14:00 | PROVIDERS: PCP Family Medicine; Visit Provider Student in an Organized Health Care Education/Training Program | DX: Z51.89 Encounter for other specified aftercare (principal); J44.9 Chronic obstructive pulmonary disease, unspecified | CPT/HCPCS: 94626 ==

== ENCOUNTER 2022-08-29 14:25 | Outpatient (RCR) | payer MEDICARE, OTHER, SELFPAY | END 2022-08-29 23:59 | disposition home or self-care (01) | LOC: PRC 14:25 | PROVIDERS: PCP Family Medicine; Visit Provider Student in an Organized Health Care Education/Training Program | DX: J44.1 Chronic obstructive pulmonary disease with (acute) exacerbation (principal); Z51.89 Encounter for other specified aftercare | CPT/HCPCS: 94626 ==

== ENCOUNTER 2022-08-31 14:50 | Outpatient (RCR) | payer MEDICARE, OTHER, SELFPAY ==
--- NOTE | 2022-09-03 09:41 | W.PFT ---
Date of service: 08/31/22 Time of Service: 13:59 Pulmonary Function Test Result Requesting Provider Gary Indications: Post pulmonary rehab Interpretation Spirometry: There is very severe airflow limitation. No BD response performed. Impression Very severe airflow obstruction. Note: When compared to 12/21/21, the FEV1 is stable and the FVC has increased. Clinical Correlation therefore is recommended.
== END 2022-09-29 23:59 | disposition home or self-care (01) ==
LOC: PRC 14:50
PROVIDERS: PCP Family Medicine; Visit Provider Student in an Organized Health Care Education/Training Program
DX: J44.1 Chronic obstructive pulmonary disease with (acute) exacerbation (principal)
CPT/HCPCS: 94626

== ENCOUNTER 2022-10-23 16:47 | Outpatient (CLI) | payer MEDICARE, OTHER, SELFPAY ==
[2022-10-23 13:38] LABS: Prothrombin Time 10.4 sec (9.3-11.0)
[2022-10-23 13:41] LABS: Abs Immature Grans 0.01 10^3/uL (0.0-0.06); Absolute Basophil Count 0.04 10^3/uL (0.0-0.2); Absolute Eosinophil Count 0.13 10^3/uL (0.0-0.7); Absolute Lymphocyte Count 1.71 10^3/uL (1.2-3.4); Absolute Monocyte Count 0.48 10^3/uL (0.1-0.8); Basophils % 0.7; Eosinophils % 2.3; HCT 46.6 % (40.0-50.0); HGB 14.8 g/dL (13.5-17.5); Immature Grans % 0.2; Lymphocytes % 29.6; MCH 27.2 pg (27.0-33.0); MCHC 31.8 % (32.0-36.0); MCV 86 fL (80-95); MPV 9.9 fL (8.0-11.0); Monocytes % 8.3; Neutrophils % 58.9; Platelet Count 174 10^3/uL (130-400); RBC 5.44 10^6/uL (4.36-5.78); RDW 14.4 % (11.8-14.1); RDW-SD 45.2 fL; WBC 5.77 10^3/uL (4.4-10.8)
[2022-10-23 13:53] LABS: ALT 20 U/L (16-63); AST 17 U/L (15-37); Alkaline Phosphatase 51 U/L (46-116); BUN 17 mg/dL (7-18); Bilirubin, Total 0.6 mg/dL (0.2-1.0); CREATININE 1.2 mg/dL (0.70-1.30); Calcium 9.2 mg/dL (8.5-10.1); Chloride 104 mmol/L (98-107); Estimated GFR 64.65 (mL/min/1.73m2); Glucose 100 mg/dL (74-106); Potassium 4.2 mmol/L (3.5-5.1); Sodium 138 mmol/L (136-145); Total Protein 7.2 g/dL (6.4-8.2)
== END 2022-10-23 16:48 | disposition home or self-care (01) ==
LOC: LBO 16:48
PROVIDERS: PCP Family Medicine; Visit Provider Internal Medicine
DX: J43.2 Centrilobular emphysema (principal); Z01.812 Encounter for preprocedural laboratory examination; Z79.01 Long term (current) use of anticoagulants; I82.412 Acute embolism and thrombosis of left femoral vein
CPT/HCPCS: 36415; 80053; 85025; 85610

== ENCOUNTER 2022-10-25 13:21 | Outpatient (CLI) | payer MEDICARE, OTHER, SELFPAY ==
--- NOTE | 2022-10-25 13:15 | RT.EKG_ITS ---
APPROVED REPORT Exam: Resting ECG Reason for Exam: PRE OP Patient Location: O HR:66 bpm ECG Measurements Heart Rate 66 AXIS KS 174 P 77 QRSd 100 QRS 78 QT 398 T 65 QTc 417 Conclusion Sinus rhythm...normal P axis, V-rate 50- 99 Normal Electrocardiogram
== END 2022-10-25 13:22 | disposition home or self-care (01) ==
PROVIDERS: PCP Family Medicine; Visit Provider Internal Medicine
DX: Z01.818 Encounter for other preprocedural examination (principal)
CPT/HCPCS: 93005; 93010

== ENCOUNTER 2022-12-17 04:07 | Outpatient (CLI) | payer MEDICARE, OTHER, SELFPAY ==
[2022-12-17] MEDS: Albuterol HFA 18 GM 200 PUFF INH IH (11:35)
[2022-12-17] MEDS: Inhaler, Assist Device 1 EACH MC (11:36)
--- NOTE | 2022-12-19 13:00 | W.PFT ---
Date of service: 12/17/22 Time of Service: 10:19 Pulmonary Function Test Result Requesting Provider Gary Indications: COPD, EBV placed 11/06/22 Interpretation Spirometry: There is very severe airflow limitation. There is significant bronchodilator response. Lung Volumes: There is hyperinflation and air trapping Diffusion Capacity: Decreased diffusion. Airway Pressure: Increased airways resistance. Impression Severe airflow obstruction with a decreased diffusion and air trapping. Note: When compared to 11/2021, lung function is stable, residual volume has slightly decreased. Clinical Correlation therefore is recommended.
--- NOTE | 2022-12-20 14:04 | W.PFT ---
Date of service: 12/17/22 Time of Service: 10:04 Pulmonary Function Test Result Requesting Provider Gary Indications: COPD Note: 6 Minute Walk Test Distance walked: 1400 feet Desaturations: 85% after 2 minutes. 3LPM required to maintain saturations at 88% or higher. Heart rate changes:none Recommendation: 3 LPM supplemental O2 needed with exertion Gloria Vega MD Pulmonary & Critical Care Medicine Clinical Correlation therefore is recommended.
== END 2022-12-17 04:08 | disposition home or self-care (01) ==
LOC: RT 04:07
PROVIDERS: PCP Family Medicine; Visit Provider Student in an Organized Health Care Education/Training Program
DX: J44.9 Chronic obstructive pulmonary disease, unspecified (principal)
CPT/HCPCS: 94060; 94618; 94726; 94729

== ENCOUNTER 2023-04-25 03:12 | Outpatient (CLI) | payer MEDICARE, OTHER, SELFPAY ==
--- NOTE | 2023-04-25 07:15 | DI.CT_ITS ---
Exam(s) CT CHEST WO EXAM: CT CHEST WO CLINICAL HISTORY: f/u new cytic lucency seen at [facility],mul nodules,lung cyst,r91.8,j98.4. TECHNIQUE: Multi planar reconstructions were performed. CONTRAST MATERIAL: None COMPARISON: CR XR CHEST PORTABLE 1 VIEW from 11/12/2022 CR XR CHEST 2 VIEWS from 11/19/[address] CHEST WO CONTRAST from 12/24/2022 FINDINGS: CHEST: LUNGS: There is still an element of left upper lobe collapse distal to what appear to be endobronchia l valves. The previously described round cystic appearing lucency in the left upper lobe is no longe r seen. There is, however, still significant volume loss in part of the left upper lobe which is col lapsed adjacent to the left side of the mediastinum. There are no new additional left lung findings nor pleural effusions. In the opposite-right lung there is some scarring in the right upper lobe aga in noted no new right lung findings. No endobronchial findings on the right side.. MEDIASTINUM: There is no obvious hilar nor mediastinal adenopathy. Visualized thyroid unremarkable.No obvious axillary adenopathy CARDIAC: Heart size is normal. There is no pericardial effusion.Of the ascending thoracic aorta is a gain noted be prominent, measuring 4.4 cm, unchanged. Also noted is prominence of the diameter of th e pulmonary arteries. Right main pulmonary artery exhibits diameter of 3.0 cm. VISUALIZED UPPER ABDOMEN:No adrenal masses. Small hypodensity in the liver is probably a sub cm kori ngioma. There is no splenomegaly. Pancreatic calcifications noted which probably reflect chronic pa ncreatitis. Pancreas is not atrophic. Pancreatic duct is not dilated. There are no peripancreatic fluid collections. OSSEOUS: No significant osseous lesions.. IMPRESSION: 1. Some further improvement on the left side as described above. The cystic lung finding on the left side is no longer seen. However, there is still an element of volume loss/atelectasis in the left u pper lobe which is collapsed adjacent to the left side of the mediastinum. Endobronchial valves on t he left side are again noted. 2. Unchanged scarring in the right upper lobe. No new right lung findings. No pleural effusions on either side. No intrathoracic adenopathy. 3. Enlarged ascending thoracic aorta, again noted to measure 4.4 cm diameter. Requires appropriate f ollow-up. Other findings as above RADIATION DOSE DELIVERED: 560.3mGy.cm Total DLP DATA REPOSITORY: All CT scans at this facility are submitted to the National Radiology Data Registry (NRDR) Dose Index Registry (DIR) with the [employer] (ACR). RADIATION OPTIMIZATION: All CT scans at this facility use at least one of these dose optimization te chniques: automated exposure control; mA and/or kV adjustment per patient size (includes targeted exa ms where dose is matched to clinical indication); or iterative reconstruction.
== END 2023-04-25 03:32 ==
LOC: DI 03:12
PROVIDERS: PCP Family Medicine; Visit Provider Student in an Organized Health Care Education/Training Program
DX: J98.4 Other disorders of lung (principal); R91.8 Other nonspecific abnormal finding of lung field
CPT/HCPCS: 71250

== ENCOUNTER 2023-06-25 03:09 | Outpatient (CLI) | payer MEDICARE, OTHER, SELFPAY ==
--- NOTE | 2023-06-25 14:23 | W.6MWT ---
Date of service: 06/25/23 Time of Service: 11:30 6 Minute Walk Test Note: 6 Minute Walk Test Distance walked:1400ft Desaturations: 94% to 86% at 4 minutes. Required 2-3LPM to maintain SpO2 >88% Heart rate changes: Normal increases Recommendation: recommend 2-3 LPM supplemental O2 with exertion Gloria Vega MD Pulmonary & Critical Care Medicine
== END 2023-06-25 03:10 | disposition home or self-care (01) ==
LOC: RT 03:09
PROVIDERS: PCP Family Medicine; Visit Provider Student in an Organized Health Care Education/Training Program
DX: J44.9 Chronic obstructive pulmonary disease, unspecified (principal)
CPT/HCPCS: 94618

== ENCOUNTER → 2023-07-08 13:08 | Outpatient (BNVA) | payer MEDICARE, OTHER, SELFPAY | PROVIDERS: PCP Family Medicine; Referring Provider Family Medicine; Visit Provider Physician Assistant Surgical | DX: J44.1 Chronic obstructive pulmonary disease with (acute) exacerbation (principal); J96.91 Respiratory failure, unspecified with hypoxia; M94.1 Relapsing polychondritis; Z87.891 Personal history of nicotine dependence | CPT/HCPCS: 99214; 94762 ==

== ENCOUNTER 2023-07-08 13:47 | Outpatient (CLI) | payer MEDICARE, OTHER, SELFPAY ==
--- NOTE | 2023-07-12 15:39 | W.NOCTURNAL ---
Date of service: 07/08/23 Time of Service: 22:58 Nocturnal Oximetry Note: Overnight Oximetry Amount of time analyzed: 7 hours, 4 minutes, room air on CPAP Number of minutes under 88%: 0.6 CARMEL:3.2 Appearance of oxygen saturation pattern:Normal pattern Recommendation: No supplemental O2 needed overnight with CPAP Gloria Vega MD Pulmonary & Critical Care Medicine
== END 2023-07-08 13:48 | disposition home or self-care (01) ==
LOC: RT 13:47
PROVIDERS: PCP Family Medicine; Visit Provider Physician Assistant Surgical
DX: J96.91 Respiratory failure, unspecified with hypoxia (principal)
CPT/HCPCS: 94762

== ENCOUNTER → 2023-07-09 00:47 | Outpatient (CLI) | payer MEDICARE, OTHER, SELFPAY ==
--- NOTE | 2023-07-09 06:30 | DI.NM_ITS ---
APPROVED REPORT Exam: Pharmacologic Patient Location: Out-Patient Room/Bed: Stress Nurse: Leslee Up RN Ordering Provider:CHETNA HADDAD, Contact Number: [phone] BMI: 27.80 Baseline Rhythm: Sinus Bradycardia Indications: Pre colonoscopy, Hx afib Medical History Medical History: Respiratory failure, AAA, lung cyst, pneumothorax, pulmonary valve replacement, afib , centrilobular emphysema, COVID 19, JAROD, hx of nicotine dependence, hx of pneumonia, COPD w/ frequen t exacerbations, Cardiac Medications: Abixiban, Inhalers Allergies: None Cardiac Risk Factors: +family history, COPD, former smoker Previous Cardiac Procedures: Pulmonary valve replacement Pretest Chest Pain Characteristics: None Exercise History: Indeterminate Physical Disabilities: shortness of breath Lung Sounds: diminished throughout Heart Sounds: Regular Stress Test Details Test: Pharmacologic stress testing performed using 0.4 mg of regadenoson per 5 mL given IV over 10 s econds. Reason for pharmacologic stress test: physical limitation (shortness of breath). Nuclear Acquisition: Rest Tc-99m/Stress Tc-99m 1 day Rest Isotope: Tc-99m Sestamibi. Dose: 10 Date: 07/09/2023 Injection Time: 0930 Stress Isotope: Tc-99m Sestamibi. Dose: 31 Date: 07/09/2023 Injection Time: 1050 HR Resting HR Supine: 49 bpm Max Heart Rate (APMHR): 148.663678 bpm Resting HR Standin bpm Target HR (85% APMHR): 125.024582 bpm Max HR Achieved: 109 bpm % of APMHR: 73.65 Recovery HR: 57 bpm BP Resting BP Supine: 138/74 mmHg Resting BP Standin/78 mmHg Max BP: 154/82 mmHg Recovery BP: 134/76 mmHg ECG Resting ECG: Sinus Bradycardia Ectopy: None Stress ECG: Sinus Tachycardia ST Change: No significant ST segment changes noted Arrhythmia: None Comment: All T waves flattened or inverted s/p Lexiscan administration Recovery ECG: Sinus Bradycardia Recovery ST Change: No significant ST segment changes noted Recovery Arrhythmia: None Comment: T waves returned to pre-lexiscan morphology Clinical Stress Symptoms: Shortness of breath Rate Pressure Product: [id number] Stress ECG Conclusion 1. Resting electrocardiogram was within normal limits 2. Patient underwent testing using pharmacologic stress with regadenoson 3. Peak heart rate achieved was 78% of predicted for age 4. Electrocardiographic portion of the test was nondiagnostic 5. See MPI report Stress Test Summary STAGE Time (mins) Speed (mph) Grade (%) HR BP SpO2 SYMPTOMS METS Supine 49 138/74 93% Standing 57 132/78 1 3 1.7 10 104 93% shortness of breath 4.5 1 min post Lexiscan injection 91 154/82 shortness of breath 3 min post Lexiscan injection 69 142/76 95% 6 min post Lexiscan injection 57 134/76 Patient attempted regular exercise treadmill test but was unable to tolerate the incline. Patient bebo balized he was too short of breath to continue and THR had not been achieved. Transitioned patient to laying Lexiscan. Tolerated test without any adverse signs or symptoms. MPI Conclusion Myocardial perfusion is normal. There is no ischemia or evidence of prior infarction Ejection fraction is 64% with normal wall motion Radiologist Interpretation Radiologist agrees with Timber Inspector's Interpretation. Radiologist Interpretation by: Kristin Fernandez MD Interpretation Date/Time: 07/12/2023 16:22:22
[2023-07-09] MEDS: Regadenoson 0.4 MG/5 ML SYR IVP (11:22)
== END ==
PROVIDERS: PCP Family Medicine; Visit Provider Family Medicine
DX: I48.91 Unspecified atrial fibrillation (principal); Z01.810 Encounter for preprocedural cardiovascular examination
CPT/HCPCS: 78452; 93016; 93018; 93017; J2785

== ENCOUNTER → 2023-09-17 10:41 | Outpatient (CLI) | payer MEDICARE, OTHER, SELFPAY ==
--- NOTE | 2023-09-17 10:30 | DI.RAD_ITS ---
Exam(s) XR SHOULDER LT COMPLETE 2+V EXAM: XR SHOULDER LT COMPLETE 2+V CLINICAL HISTORY: M25.512 left shoulder pain. TECHNIQUE: 2D digital imaging was performed of the left shoulder. Five images were obtained. AP, G rashey, Y-view and axillary views were obtained. COMPARISON: CR XR CHEST 2 VIEWS from 11/19/2022 FINDINGS: BONES: No acute fracture is present. No bony destructive lesion is seen. JOINTS: No dislocation present. Glenohumeral joint is well maintained. There are mild degenerative c hanges seen at the acromioclavicular joint. SOFT TISSUE: There is left upper lobe scarring. IMPRESSION: Mild degenerative changes of the AC joint. DATA REPOSITORY: RADIATION DOSE DELIVERED:
== END ==
PROVIDERS: PCP Family Medicine; Visit Provider Nurse Practitioner Family
DX: M19.012 Primary osteoarthritis, left shoulder (principal)
CPT/HCPCS: 73030

== ENCOUNTER → 2023-10-07 14:56 | Outpatient (BNVA) | payer MEDICARE, OTHER, SELFPAY | PROVIDERS: PCP Family Medicine; Referring Provider Family Medicine; Visit Provider Student in an Organized Health Care Education/Training Program | DX: M94.1 Relapsing polychondritis (principal); J44.1 Chronic obstructive pulmonary disease with (acute) exacerbation; Z87.891 Personal history of nicotine dependence; J96.91 Respiratory failure, unspecified with hypoxia | CPT/HCPCS: 94618; 99214 ==

== ENCOUNTER → 2024-01-21 10:12 | Outpatient (BNVA) | payer MEDICARE, OTHER, SELFPAY | PROVIDERS: PCP Family Medicine; Referring Provider Family Medicine; Visit Provider Student in an Organized Health Care Education/Training Program | DX: M75.02 Adhesive capsulitis of left shoulder (principal) | CPT/HCPCS: 99213 ==

== ENCOUNTER → 2024-04-21 08:41 | Outpatient (BNVA) | payer MEDICARE, OTHER, SELFPAY | PROVIDERS: PCP Family Medicine; Referring Provider Family Medicine; Visit Provider Physician Assistant Surgical | DX: M94.1 Relapsing polychondritis (principal); J44.1 Chronic obstructive pulmonary disease with (acute) exacerbation; Z87.891 Personal history of nicotine dependence; J96.91 Respiratory failure, unspecified with hypoxia | CPT/HCPCS: 99214 ==

== ENCOUNTER 2024-08-24 01:22 | Outpatient (CLI) | payer MEDICARE, OTHER, SELFPAY ==
--- NOTE | 2024-08-24 07:00 | DI.RAD_ITS ---
Exam(s) XR KNEE LT 3V AP,LAT,ALEXEI EXAM: XR KNEE LT 3V AP,LAT,ALEXEI CLINICAL HISTORY: bilat knee pain, m25.562. TECHNIQUE: 2D digital imaging was performed of the left knee. Three images were obtained. AP, late ral and PA tunnel views were obtained. COMPARISON: No priors for comparison. FINDINGS: BONES: No acute fracture is present. No bony destructive lesion is seen. JOINTS: The knee is normally aligned. No significant joint effusion. No loose body. SOFT TISSUE: Normal. IMPRESSION: No acute fracture or dislocation. DATA REPOSITORY: RADIATION DOSE DELIVERED:
--- NOTE | 2024-08-24 07:00 | DI.RAD_ITS ---
Exam(s) XR KNEE RT 3V AP,LAT,ALEXEI EXAM: XR KNEE RT 3V AP,LAT,ALEXEI CLINICAL HISTORY: knee pain,m25.561. TECHNIQUE: 2D digital imaging was performed of the right knee. Four views obtained. AP, lateral and PA tunnel views were obtained. COMPARISON: CR XR KNEE RT 3V AP,LAT,ALEXEI from 12/29/2020 FINDINGS: BONES: No acute fracture is present. No bony destructive lesion is seen. JOINTS: The knee is normally aligned. There is a tiny joint effusion. SOFT TISSUE: Normal. IMPRESSION: No acute abnormality. DATA REPOSITORY: RADIATION DOSE DELIVERED:
== END 2024-08-24 01:42 ==
LOC: DI 01:22
PROVIDERS: PCP Family Medicine; Visit Provider Family Medicine
DX: M25.561 Pain in right knee (principal); M25.562 Pain in left knee
CPT/HCPCS: 36415; 73562; 80053; 85027; 84153

== ENCOUNTER 2024-08-24 11:54 | Outpatient (CLI) | payer MEDICARE, OTHER, SELFPAY ==
[2024-08-24 10:32] LABS: HGB 14.5 g/dL (13.5-17.5); MCH 27.1 pg (27.0-33.0); MCHC 30.9 % (32.0-36.0); MCV 88 fL (80-95); MPV 10.1 fL (8.0-11.0); Platelet Count 175 10^3/uL (130-400); RBC 5.36 10^6/uL (4.36-5.78); RDW 14.4 % (11.8-14.1); WBC 4.98 10^3/uL (4.4-10.8)
[2024-08-24 11:11] LABS: ALT 25 U/L (16-63); AST 14 U/L (15-37); Albumin 3.8 g/dL (3.4-5.0); Alkaline Phosphatase 55 U/L (46-116); Anion Gap 5.3 mmol/L (3-11); BUN 18 mg/dL (7-18); CO2 30.7 mmol/L (21.0-32.0); CREATININE 1.3 mg/dL (0.70-1.30); Calcium 8.9 mg/dL (8.5-10.1); Chloride 106 mmol/L (98-107); Estimated GFR 58.01 (mL/min/1.73m2); Glucose 101 mg/dL (74-106); Potassium 4.3 mmol/L (3.5-5.1); Sodium 142 mmol/L (136-145); Total Protein 7.3 g/dL (6.4-8.2)
[2024-08-24 17:49] LABS: PSA, Diagnostic 5.6 ng/mL (<=6.5)
== END 2024-08-24 11:55 | disposition home or self-care (01) ==
LOC: LBO 11:58
PROVIDERS: PCP Family Medicine; Visit Provider Family Medicine
DX: I10 Essential (primary) hypertension (principal); N40.0 Benign prostatic hyperplasia without lower urinary tract symptoms; Z79.01 Long term (current) use of anticoagulants
CPT/HCPCS: 36415; 80053; 85027; 84153

== ENCOUNTER → 2024-11-18 07:46 | Outpatient (BNVA) | payer MEDICARE, OTHER, SELFPAY | PROVIDERS: PCP Family Medicine; Referring Provider Family Medicine; Visit Provider Physician Assistant Surgical | DX: J44.1 Chronic obstructive pulmonary disease with (acute) exacerbation (principal); J96.91 Respiratory failure, unspecified with hypoxia; M94.1 Relapsing polychondritis; I50.9 Heart failure, unspecified; Z87.891 Personal history of nicotine dependence | CPT/HCPCS: 99214 ==

== ENCOUNTER 2024-11-18 12:06 | Outpatient (CLI) | payer MEDICARE, OTHER, SELFPAY ==
[2024-11-18 09:29] LABS: Abs Immature Grans 0.01 10^3/uL (0.0-0.06); Absolute Basophil Count 0.06 10^3/uL (0.0-0.2); Absolute Eosinophil Count 0.18 10^3/uL (0.0-0.7); Absolute Lymphocyte Count 1.41 10^3/uL (1.2-3.4); Absolute Monocyte Count 0.44 10^3/uL (0.1-0.8); Basophils % 1.2 %; Eosinophils % 3.5 %; HCT 48.3 % (40.0-50.0); HGB 15.1 g/dL (13.5-17.5); Immature Grans % 0.2 %; Lymphocytes % 27.1 %; MCH 27.6 pg (27.0-33.0); MCHC 31.3 % (32.0-36.0); MCV 88 fL (80-95); MPV 9.6 fL (8.0-11.0); Monocytes % 8.5 %; Neutrophils % 59.5 %; Platelet Count 156 10^3/uL (130-400); RBC 5.47 10^6/uL (4.36-5.78); RDW 14.1 % (11.8-14.1); RDW-SD 45.6 fL
[2024-11-18 10:14] LABS: Anion Gap 4.3 mmol/L (3-11); BUN 18 mg/dL (7-18); CO2 32.7 mmol/L (21.0-32.0); CREATININE 1.3 mg/dL (0.70-1.30); Calcium 9.3 mg/dL (8.5-10.1); Chloride 106 mmol/L (98-107); Estimated GFR 58.01 (mL/min/1.73m2); Glucose 101 mg/dL (74-106); NT-proBNP 18 pg/mL (<300); Potassium 4.9 mmol/L (3.5-5.1); Sodium 143 mmol/L (136-145)
== END 2024-11-18 12:07 | disposition home or self-care (01) ==
LOC: LBO 12:10
PROVIDERS: PCP Family Medicine; Visit Provider Physician Assistant Surgical
DX: I50.9 Heart failure, unspecified (principal); J96.91 Respiratory failure, unspecified with hypoxia; J44.1 Chronic obstructive pulmonary disease with (acute) exacerbation
CPT/HCPCS: 36415; 80048; 99214; 83880; 85025

== ENCOUNTER 2024-11-26 03:23 | Outpatient (CLI) | payer MEDICARE, OTHER, SELFPAY | END 2024-11-26 03:24 | disposition home or self-care (01) | LOC: RT 03:23 | PROVIDERS: PCP Family Medicine; Visit Provider Student in an Organized Health Care Education/Training Program | DX: J96.91 Respiratory failure, unspecified with hypoxia (principal) | CPT/HCPCS: 94618 ==

== ENCOUNTER 2024-11-27 00:27 | Outpatient (CLI) | payer MEDICARE, OTHER, SELFPAY ==
[2024-11-27] MEDS: Normal Saline - Diluent 50 ML VIAL IJ (14:44)
[2024-11-27] MEDS: Omnipaque 350 MG/ML 100 ML BTL IJ (14:45)
--- NOTE | 2024-11-27 14:49 | DI.CT_ITS ---
Exam(s) CT CHEST PE CTA EXAM: CT CHEST PE CTA CLINICAL HISTORY: worsening SpO2 after travel,RESP FAILURE WITH HYPOXIA,COPD,. TECHNIQUE: Imaging Protocol: Axial CT angiography was performed with multi-slice acquisition and mu lti-planar reconstructions as well as axial, coronal and sagittal MIP reconstructions. Computer aided detection (CAD) was utilized. CONTRAST MATERIAL: Intravenous: Omnipaque 350 Contrast volume:100 ml COMPARISON: CT CT CHEST WO CONTRAST from 12/24/[address] CHEST WO from 04/25/2023 FINDINGS: Pulmonary Arteries: No evidence of filling defect to suggest pulmonary emboli. Mediastinum and Corrina: No dominant adenopathy or fluid collection. Pulmonary parenchyma: Medial left upper lobe atelectasis, adjacent to the hilum and aortic arch. The vessels appear patent. There is bronchial obstruction again noted at this level. Scarring inferior to this level. Nodular area no longer present. Scarring right upper lobe. Stable scattered micro nodules. No dominant measurable mass. Moderate emphysematous changes again noted. Pleura: No effusion or pneumothorax. Heart: The heart is not dilated. Minimal coronary artery calcifications are seen. Aorta: Ascending aorta stable at 4.4 cm.. No dissection. Upper abdomen: No acute findings. Bones: Unremarkable for age. Tubes, Catheters, and Lines: None Soft tissues: Unremarkable. IMPRESSION: No evidence of pulmonary embolism. Medial left upper lobe collapse again noted. No visible suspicious mass. RADIATION DOSE DELIVERED: 98.56mGy.cm Total DLP DATA REPOSITORY: All CT scans at this facility are submitted to the National Radiology Data Registry (NRDR) Dose Index Registry (DIR) with the [employer] (ACR). RADIATION OPTIMIZATION: All CT scans at this facility use at least one of these dose optimization te chniques: automated exposure control; mA and/or kV adjustment per patient size (includes targeted exa ms where dose is matched to clinical indication); or iterative reconstruction.
== END 2024-11-27 00:47 ==
LOC: DI 00:27
PROVIDERS: PCP Family Medicine; Visit Provider Physician Assistant Surgical
DX: J96.91 Respiratory failure, unspecified with hypoxia (principal)
CPT/HCPCS: 71275; J3490

== ENCOUNTER 2024-12-01 03:19 | Outpatient (CLI) | payer MEDICARE, OTHER, SELFPAY ==
[2024-12-01] MEDS: Inhaler, Assist Device 1 EACH MC (08:49)
[2024-12-01] MEDS: Levalbuterol HFA 15 GM INH 4 PUFF IH (08:50)
--- NOTE | 2024-12-02 20:52 | W.PFT ---
Date of service: 12/01/24 Time of Service: 08:03 Pulmonary Function Test Result Indications: Respiratory failure Interpretation Spirometry: There is severe airflow limitation. No bronchodilator response Lung Volumes: There is hyperinflation and air trapping Diffusion Capacity: Decreased diffusion Airway Pressure: Increased airways resistance Impression Severe airflow obstruction with air trapping and a decreased diffusion. Clinical Correlation therefore is recommended.
== END 2024-12-01 03:20 | disposition home or self-care (01) ==
PROVIDERS: PCP Family Medicine; Visit Provider Student in an Organized Health Care Education/Training Program
DX: J96.91 Respiratory failure, unspecified with hypoxia (principal)
CPT/HCPCS: 94060; 94726; 94729

== ENCOUNTER 2024-12-21 02:08 | Outpatient (CLI) | payer MEDICARE, OTHER, SELFPAY ==
--- NOTE | 2024-12-21 07:45 | DI.US_ITS ---
APPROVED REPORT EXAM: Comprehensive 2D, Doppler, and color-flow Echocardiogram Patient Location: [facility] [place] Clerk: Juan Hernandez RDCS (AE) Indications: Concern for pulmonary HTN, heart failure Other Information Study Quality: Adequate. Technically limited study due to body habitus. Conclusion Normal left ventricular wall thickness and chamber size. Ejection fraction is 60%. Wall motion is n ormal Normal right ventricular size and function Both atria are normal in size Aortic valve is mildly sclerotic and trileaflet without stenosis or regurgitation There is no additional significant valvular disease Mildly dilated aortic root and ascending aorta Wall motion Left Ventricle The left ventricle is normal size. The left ventricular systolic function is normal. The left ventric ular ejection fraction is within the normal range. There is normal left ventricular wall thickness. T here is normal LV segmental wall motion. There is no ventricular septal defect visualized. LVEF is 60 %. Right Ventricle The right ventricle is normal size. The right ventricular systolic function is normal. Atria The left atrium size is normal. The right atrium size is normal. The interatrial septum is intact wit h no evidence for an atrial septal defect. Aortic Valve The aortic valve is mildly sclerotic. There is no aortic valvular stenosis. No aortic regurgitation i s present. Mitral Valve The mitral valve is normal in structure. No evidence of mitral valve stenosis. No Mitral Regurgitatio n. Tricuspid Valve The tricuspid valve is normal in structure. There is no tricuspid valve stenosis. Trace tricuspid reg urgitation. Pulmonic Valve The pulmonary valve is normal in structure. There is no pulmonic valvular stenosis. There is no pulmo flavio valvular regurgitation. Great Vessels Aortic root is moderately dilated. The ascending aorta is mildly dilated. IVC is normal in size and c ollapses >50% with inspiration. Pericardium There is no pericardial effusion. 2D Dimensions IVSD d PLAX 0.83 cm M: 0.6-1.2 Ao Root d 4.08 cm M: 3.1 - 3.7 LVPW d PLAX 0.78 cm M: 0.6 - 1.2 Ao Asc Diam d 3.84 cm M: 2.6 - 3.4 LVID d PLAX 5.18 cm M: 4.2 - 5.8 LVDs 3.52 cm M: 2.5 - 4.0 LV EF Teichholz 59.8 % FS 32.00 % LV EDV (Teich) 128.1 mL LV ESV (Teich) 51.6 mL Stroke Vol Index (Teich) 36.47 M-Mode TAPSE 2.76 cm (M/F) >1.7 Auto EF LV EDV A4C 107.4 mL LV EDV A2C 102.8 mL LV EDV BP 106.7 mL LV ESV A4C 43.5 mL LV ESV A2C 40.9 mL LV ESV BP 43.7 mL LVEF(%) A4C 59.5 % LVEF(%) A2C 60.2 % LVEF(%) BP 59.0 % LV SV A4C 63.9 ml LV SV A2C 61.9 ml LV SV BP 63.0 ml LV CO A4C 3.4 L/min LV CO A2C 3.6 L/min LV CO BP 3.5 L/min HR A4C 53.90 BPM HR A2C 57.88 BPM LV EDV Index (BP) LA Volume LA Length A4C 4.6 cm LA Length A2C 5.1 cm LA Area A4C s 13.45 cm2 LA Area A2C s 14.49 cm2 LA Vol A4C A-L 33.59 mL LA Vol A2C A-L 35.25 mL LA Vol Biplane A-L 36.2 mL LA Vol/BSA A4C A-L LA Vol/BSA A2C A-L LA Vol/BSA BP A-L 17.2 mL/m2 LA Vol A4C MOD 31.3 mL LA Vol A2C MOD 33.4 mL LA Vol BP MOD 33.5 mL RA Volume RA Area A4C 9.5 cm2 RA ESV A4C (A-L) 17.0mL RA Vol/BSA A4C A-L RA Length A4C 4.5 cm RA ESV A4C (MOD) 16.3mL LV Diastology MV E' medial 0.094 (>0.07 m/s) MV E Vmax 0.52 (0.4-1.3 m/s) MV E/E' MED 5.53 (<14) MV A Vmax 0.70 (0.4-1.3 m/s) MV E' lateral 0.107 (>0.1 m/s) E/A Ratio 0.7 MV E/E' LAT 4.88 (<14) MV E' Average 0.100 m/s MV E/E'(average) 5.19 Aortic Valve AoV Vmax 0.76 m/s LVOT Vmax 0.83 m/s AoV Peak Grad 2.3 mmHg LVOT Peak Grad 2.8 mmHg AoV Area (Vmax) 4.40 cm2 LVOT VTI 0.205 m AoV VTI 0.182 m LVOT Mean Grad 1.6 mmHg AoV Mean Brett. 0.54 m/s LVOT SV 83.09 mL AoV Mean Grad 1.3 mmHg LVOT Diam s 2.25 cm AoV Area (VTI) 4.56 cm2 AV Regurg Peak Gr. 2.34 mmHg Velocity Ratio 1.09 Mitral Valve MV DT 165 (160-240 msec) MV Vmax TIPS 0.61 m/s MV Mean Grad 0.4 (<2mmHg) MV VTI 0.208 m Pulmonary Valve PV Vmax 0.97 (0.5-1.5 m/s) RVOT Vmax 0.68 m/s PV Peak Grad 3.8 mmHg RVOT Peak Gr. 1.8 mmHg PV Mean Brett 0.63 m/s RVOT VTI 0.146 m PV Mean Grad 1.8 mmHg RVOT Mean Gr. 1.1 mmHg Tricuspid Valve TV S' 0.12 m/s
== END 2024-12-21 02:28 ==
LOC: DI 02:08
PROVIDERS: PCP Family Medicine; Visit Provider Internal Medicine Cardiovascular Disease
DX: I50.9 Heart failure, unspecified (principal); I35.0 Nonrheumatic aortic (valve) stenosis
CPT/HCPCS: 93306

== ENCOUNTER → 2024-12-24 13:34 | Outpatient (BNVA) | payer MEDICARE, OTHER, SELFPAY | PROVIDERS: PCP Family Medicine; Referring Provider Family Medicine; Visit Provider Physician Assistant Surgical | DX: J96.90 Respiratory failure, unspecified, unspecified whether with hypoxia or hypercapnia (principal) | CPT/HCPCS: 94618 ==

== ENCOUNTER → 2024-12-29 09:18 | Outpatient (BNVA) | payer MEDICARE, OTHER, SELFPAY | PROVIDERS: PCP Family Medicine; Referring Provider Family Medicine; Visit Provider Physician Assistant Surgical | DX: M94.1 Relapsing polychondritis (principal); J44.1 Chronic obstructive pulmonary disease with (acute) exacerbation; J96.91 Respiratory failure, unspecified with hypoxia; Z87.891 Personal history of nicotine dependence | CPT/HCPCS: 99214 ==

== ENCOUNTER 2025-02-11 09:31 | Outpatient (CLI) | payer MEDICARE, OTHER, SELFPAY ==
[2025-02-11 10:03] LABS: HCT 44.6 % (40.0-50.0); HGB 14.2 g/dL (13.5-17.5); MCH 27.2 pg (27.0-33.0); MCHC 31.8 % (32.0-36.0); MCV 85 fL (80-95); MPV 10.2 fL (8.0-11.0); Platelet Count 169 10^3/uL (130-400); RBC 5.22 10^6/uL (4.36-5.78); WBC 5.13 10^3/uL (4.4-10.8)
[2025-02-11 10:36] LABS: ALT 23 U/L (16-63); AST 18 U/L (15-37); Albumin 3.8 g/dL (3.4-5.0); Alkaline Phosphatase 54 U/L (46-116); Anion Gap 3.7 mmol/L (3-11); BUN 17 mg/dL (7-18); Bilirubin, Total 0.6 mg/dL (0.2-1.0); CO2 30.3 mmol/L (21.0-32.0); CREATININE 1.2 mg/dL (0.70-1.30); Calcium 9.2 mg/dL (8.5-10.1); Chloride 105 mmol/L (98-107); Estimated GFR 63.46 (mL/min/1.73m2); Glucose 101 mg/dL (74-106); Potassium 4.6 mmol/L (3.5-5.1); Sodium 139 mmol/L (136-145); Total Protein 7.3 g/dL (6.4-8.2)
== END 2025-02-11 09:32 | disposition home or self-care (01) ==
LOC: LBO 09:31
PROVIDERS: PCP Family Medicine; Visit Provider Family Medicine
DX: R97.20 Elevated prostate specific antigen [PSA] (principal); Z79.01 Long term (current) use of anticoagulants; I10 Essential (primary) hypertension
CPT/HCPCS: 36415; 80053; 85027; 84154

== ENCOUNTER → 2025-03-02 14:06 | Outpatient (BNVA) | payer MEDICARE, OTHER, SELFPAY | PROVIDERS: PCP Family Medicine; Referring Provider Family Medicine; Visit Provider Physician Assistant Surgical | DX: M94.1 Relapsing polychondritis (principal); J44.1 Chronic obstructive pulmonary disease with (acute) exacerbation; Z87.891 Personal history of nicotine dependence; J96.91 Respiratory failure, unspecified with hypoxia | CPT/HCPCS: 99214; 94618 ==

== ENCOUNTER 2025-03-03 16:31 | Outpatient (CLI) | payer MEDICARE, OTHER, SELFPAY ==
[2025-03-03 15:48] LABS: HCT 44.5 % (40.0-50.0); HGB 14.3 g/dL (13.5-17.5); MCH 27.3 pg (27.0-33.0); MCHC 32.1 % (32.0-36.0); MCV 85 fL (80-95); MPV 9.7 fL (8.0-11.0); Platelet Count 176 10^3/uL (130-400); RBC 5.23 10^6/uL (4.36-5.78); RDW 14.1 % (11.8-14.1); RDW-SD 43.6 fL; WBC 5.78 10^3/uL (4.4-10.8)
[2025-03-03 16:40] LABS: TSH (W/Ref FT4) 2.06 uIU/mL (0.36-3.74)
== END 2025-03-03 16:32 | disposition home or self-care (01) ==
LOC: LBO 16:32
PROVIDERS: PCP Family Medicine; Visit Provider Family Medicine
DX: R06.02 Shortness of breath (principal); E03.9 Hypothyroidism, unspecified
CPT/HCPCS: 36415; 85027; 84443

== ENCOUNTER → 2025-04-06 08:49 | Outpatient (BNVA) | payer MEDICARE, OTHER, SELFPAY | PROVIDERS: PCP Family Medicine; Referring Provider Family Medicine; Visit Provider Internal Medicine Pulmonary Disease | DX: J44.9 Chronic obstructive pulmonary disease, unspecified (principal); J96.11 Chronic respiratory failure with hypoxia; M94.1 Relapsing polychondritis; G47.33 Obstructive sleep apnea (adult) (pediatric); J98.11 Atelectasis | CPT/HCPCS: 99215 ==

== ENCOUNTER → 2025-09-02 09:01 | Outpatient (BNVA) | payer MEDICARE, OTHER, SELFPAY | PROVIDERS: PCP Family Medicine; Referring Provider Family Medicine; Visit Provider Internal Medicine Pulmonary Disease | DX: J44.9 Chronic obstructive pulmonary disease, unspecified (principal); J96.11 Chronic respiratory failure with hypoxia; G47.33 Obstructive sleep apnea (adult) (pediatric); Z87.891 Personal history of nicotine dependence | CPT/HCPCS: 99214 ==